=== PATIENT | female | born 1980 | race Caucasian/White ===

== ENCOUNTER 2018-08-09 11:15 | Emergency (ER) | payer SELFPAY ==
--- NOTE | 2018-08-09 12:05 | ER ---
Nurse's Notes [facility] Name: Santi Stinson Age: 37 yrs Sex: Female : 1980 Arrival Date: 08/09/2018 Time: 11:20 Bed 23 Private MD: Diagnosis: Pain in left leg;Pain in right leg Presentation: 08/09 11:20 Presenting complaint: Patient states: Pain to bilateral legs and hips since yesterday. aj1 Reports the pain is worse any time she changes position, and is making it difficult to walk. Denies any injury to legs or hips. Transition of care: patient was not received from another setting of care. Onset of symptoms was August 08, 2018. Risk Assessment: Do you want to hurt yourself or someone else? Patient reports no desire to harm self or others. Initial Sepsis Screen: Does the patient meet any 2 criteria? No. Patient's initial sepsis screen is negative. Does the patient have a suspected source of infection? No. Patient's initial sepsis screen is negative. Care prior to arrival: None. 11:20 Method Of Arrival: EMS: [facility] aj1 11:20 Acuity: SAMANTHA 4 aj1 Triage Assessment: 11:22 General: Appears in no apparent distress. comfortable, Behavior is calm, cooperative, aj1 appropriate for age. Pain: Complains of pain in left hip, right hip, right leg and left leg. Historical: - Allergies: 11:22 No Known Allergies; aj1 - Home Meds: 11:22 Depakote Oral [Active]; aj1 - PMHx: 11:22 ADD/ADHD; Anxiety; Bipolar disorder; Depression; Pre-eclampsia; Seizures; aj1 - Immunization history:: Adult Immunizations up to date. - Ebola Screening: : Patient denies travel to an Ebola-affected area in the 21 days before illness onset. - Family history:: not pertinent. - Hospitalizations: : No recent hospitalization is reported. Screenin:23 Abuse screen: Denies threats or abuse. Denies injuries from another. Nutritional aj1 screening: No deficits noted. Tuberculosis screening: No symptoms or risk factors identified. Assessment: 11:23 General: Appears in no apparent distress. comfortable, Behavior is calm, cooperative, aj1 appropriate for age. Pain: Complains of pain in left leg and right leg and right hip and left hip Pain does not radiate. Pain currently is 8 out of 10 on a pain scale. Quality of pain is described as crampy, Pain began 1 day ago. Is intermittent, Alleviated by nothing. Aggravated by repositioning. Neuro: Level of Consciousness is awake, alert, obeys commands. Cardiovascular: Patient's skin is warm and dry. Respiratory: Airway is patent Respiratory effort is even, unlabored, Respiratory pattern is regular, symmetrical. GI: No signs and/or symptoms were reported involving the gastrointestinal system. : No signs and/or symptoms were reported regarding the genitourinary system. EENT: No signs and/or symptoms were reported regarding the EENT system. Derm: No signs and/or symptoms reported regarding the dermatologic system. Skin is pink, warm \T\ dry. normal. Musculoskeletal: Circulation, motion, and sensation intact. Range of motion: intact in all extremities. 12:37 Reassessment: Patient appears in no apparent distress at this time. No changes from aj1 previously documented assessment. Patient and/or family updated on plan of care and expected duration. Pain level reassessed. Patient is alert, oriented x 3, equal unlabored respirations, skin warm/dry/pink. Vital Signs: 11:22 BP 113 / 96; Pulse 89; Resp 16; Temp 98.4; Pulse Ox 100% on R/A; Weight 95.25 kg (R); aj1 Height 5 ft. 4 in. (162.56 cm) (R); Pain 8/10; 12:37 BP 115 / 77; Pulse 75; Resp 16; Pulse Ox 98% on R/A; aj1 11:22 Body Mass Index 36.05 (95.25 kg, 162.56 cm) aj1 ED Course: 11:20 Patient arrived in ED. aj1 11:20 He Simmons MD is Attending Physician. rn 11:21 Triage completed. aj1 11:22 Arm band placed on. aj1 11:23 Patient has correct armband on for positive identification. Bed in low position. Call aj1 light in reach. Side rails up X 1. 11:23 No provider procedures requiring assistance completed. aj1 11:57 Alma Hernadez, RN is Primary Nurse. aj1 12:55 Patient did not have IV access during this emergency room visit. ss Administered Medications: 12:06 Drug: TORadol 30 mg Route: IM; Site: right deltoid; aj1 12:56 Follow up: Response: No adverse reaction; Pain is decreased Outcome: 12:05 Discharge ordered by . rn 12:55 Discharged to home ambulatory. 12:55 Condition: good 12:55 Discharge instructions given to patient, Instructed on discharge instructions, follow up and referral plans. medication usage, Demonstrated understanding of instructions, follow-up care, medications. 12:55 Patient left the ED. Signatures: Alma Hernadez RN RN aj1 He Simmons MD MD rn Smirch, Shelby, RN RN
--- NOTE | 2018-08-09 12:05 | EDPHYS ---
Physician Documentation [facility] Name: Santi Stinson Age: 37 yrs Sex: Female : 1980 Arrival Date: 08/09/2018 Time: 11:20 Bed 23 Private MD: ED Physician He Simmons HPI: 08/09 12:00 This 37 yrs old Female presents to ER via EMS with complaints of Leg Pain. rn 12:00 The patient presents with pain. The complaints affect the right leg and left leg. rn Onset: The symptoms/episode began/occurred this morning. Modifying factors: The symptoms are alleviated by nothing. the symptoms are aggravated by movement, weight bearing. Severity of symptoms: At their worst the symptoms were mild, in the emergency department the symptoms are unchanged. The patient has not experienced similar symptoms in the past. Reports walking a lot yesterday, no trauma, no fever/rash, reports woke up this morning with pain from feet to thighs, aching, hurts to walk. + chronic back problems, no new symptoms. . Historical: - Allergies: 11:22 No Known Allergies; aj1 - Home Meds: 11:22 Depakote Oral [Active]; aj1 - PMHx: 11:22 ADD/ADHD; Anxiety; Bipolar disorder; Depression; Pre-eclampsia; Seizures; aj1 - Immunization history:: Adult Immunizations up to date. - Ebola Screening: : Patient denies travel to an Ebola-affected area in the 21 days before illness onset. - Family history:: not pertinent. - Hospitalizations: : No recent hospitalization is reported. ROS: 12:02 Constitutional: Negative for fever, chills, and weight loss, Eyes: Negative for injury, rn pain, redness, and discharge, Neck: Negative for injury, pain, and swelling, Cardiovascular: Negative for chest pain, palpitations, and edema, Respiratory: Negative for shortness of breath, cough, wheezing, and pleuritic chest pain, Abdomen/GI: Negative for abdominal pain, nausea, vomiting, diarrhea, and constipation, MS/Extremity: Negative for injury and deformity, Skin: Negative for injury, rash, and discoloration, Neuro: Negative for headache, weakness, numbness, tingling, and seizure. Exam: 12:02 Constitutional: This is a well developed, well nourished patient who is awake, alert, rn and in no acute distress. Head/Face: Normocephalic, atraumatic. Abdomen/GI: soft, non-tender Skin: Warm, dry with normal turgor. Normal color with no rashes, no lesions, and no evidence of cellulitis. MS/ Extremity: Pulses equal, no cyanosis. Neurovascular intact. Full, normal range of motion. Equal circumference. Neuro: Awake and alert, GCS 15, oriented to person, place, time, and situation. Cranial nerves II-XII grossly intact. Motor strength 5/5 in all extremities. Sensory grossly intact. Cerebellar exam normal. Normal gait. 12:05 Psych: Exam negative for hallucinations, psychosis, paranoia, Also negative for rn suicidal or homicidal ideations.. Vital Signs: 11:22 BP 113 / 96; Pulse 89; Resp 16; Temp 98.4; Pulse Ox 100% on R/A; Weight 95.25 kg (R); aj1 Height 5 ft. 4 in. (162.56 cm) (R); Pain 8/10; 12:37 BP 115 / 77; Pulse 75; Resp 16; Pulse Ox 98% on R/A; aj1 11:22 Body Mass Index 36.05 (95.25 kg, 162.56 cm) aj1 MDM: 11:20 Patient medically screened. rn 12:02 Differential diagnosis: muscle aches, joint pains, radiculopathy, neuropathy. Data rn reviewed: vital signs, nurses notes, and as a result, I will discharge patient. Counseling: I had a detailed discussion with the patient and/or guardian regarding: the historical points, exam findings, and any diagnostic results supporting the discharge/admit diagnosis, the need for outpatient follow up, to return to the emergency department if symptoms worsen or persist or if there are any questions or concerns that arise at home. Special discussion: I discussed with the patient/guardian in detail that at this point there is no indication for admission to the hospital. It is understood, however, that if the symptoms persist or worsen the patient needs to return immediately for re-evaluation. ED course: No signs of trauma, compartments soft, no rash, + bilateral pain without weakness or sensory changes, states walked a lot yesterday, will dc home with pcp f/u and OTC meds.. Administered Medications: 12:06 Drug: TORadol 30 mg Route: IM; Site: right deltoid; aj1 12:56 Follow up: Response: No adverse reaction; Pain is decreased ss Disposition: 08/09/18 12:05 Discharged to Home. Impression: Pain in left leg, Pain in right leg. - Condition is Stable. - Discharge Instructions: Musculoskeletal Pain, Pain Without a Known Cause, Neuropathic Pain. - Medication Reconciliation Form, Thank You Letter, Antibiotic Education, Prescription Opioid Use form. - Follow up: Private Physician; When: As needed; Reason: Recheck today's complaints, Re-evaluation by your physician. - Problem is new. - Symptoms have improved. Signatures: Alma Hernadez RN RN aj1 He Simmons MD MD rn Smirch, Shelby, RN RN ss Corrections: (The following items were deleted from the chart) 12:55 12:05 08/09/2018 12:05 Discharged to Home. Impression: Pain in left leg; Pain in right ss leg. Condition is Stable. Forms are Medication Reconciliation Form, Thank You Letter, Antibiotic Education, Prescription Opioid Use. Follow up: Private Physician; When: As needed; Reason: Recheck today's complaints, Re-evaluation by your physician. Problem is new. Symptoms have improved. rn
[2018-08-09] MEDS ORDERED: KETOROLAC 30 MG/ML INJ ONE (12:09)
[2018-08-09 12:59] VITALS: TEMP 98.4
[2018-08-09 13:00] VITALS: BP 115/77; O2SAT 98
== END 2018-08-09 12:55 | disposition home or self-care (01) ==
LOC: ER 11:15
DX: M79.604 Pain in right leg (principal); F32.9 Major depressive disorder, single episode, unspecified; F41.9 Anxiety disorder, unspecified; F31.9 Bipolar disorder, unspecified
CPT/HCPCS: 96372; 99283

== ENCOUNTER 2018-08-23 15:14 | Emergency (ER) | payer SELFPAY ==
--- NOTE | 2018-08-23 15:47 | ER ---
Nurse's Notes [facility] Name: Santi Stinson Age: 37 yrs Sex: Female : 1980 Arrival Date: 08/23/2018 Time: 15:18 Bed 24 Private MD: Diagnosis: Dehydration Presentation: 08/23 15:20 Presenting complaint: EMS states: "SHE WALKED INSIDE THE [facility]. THEY FOUND THEM rv SITTING. SHE LOOKED DEHYDRATED. SHE IS COMPLAINING OF ABDOMINAL PAIN.". Transition of care: patient was not received from another setting of care. Onset of symptoms was August 23, 2018 at 15:00. Risk Assessment: Do you want to hurt yourself or someone else? Patient reports no desire to harm self or others. Initial Sepsis Screen: Does the patient meet any 2 criteria? No. Patient's initial sepsis screen is negative. Does the patient have a suspected source of infection? No. Patient's initial sepsis screen is negative. Care prior to arrival: None. 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 rv Historical: - Allergies: 15:23 No Known Allergies; rv - Home Meds: 15:23 None [Active]; rv - PMHx: 15:23 ADD/ADHD; Anxiety; Bipolar disorder; Depression; Pre-eclampsia; Seizures; rv - PSHx: 15:23 None; rv - Immunization history:: Adult Immunizations unknown. - Social history:: Smoking status: unknown. - Ebola Screening: : Patient negative for fever greater than or equal to 101.5 degrees Fahrenheit, and additional compatible Ebola Virus Disease symptoms Patient denies exposure to infectious person Patient denies travel to an Ebola-affected area in the 21 days before illness onset. Screenin:30 Abuse screen: Denies threats or abuse. Denies injuries from another. Nutritional rv screening: No deficits noted. Tuberculosis screening: No symptoms or risk factors identified. Fall Risk None identified. Assessment: 15:25 General: Appears in no apparent distress. uncomfortable, Behavior is restless, rv uncooperative. Pain: Complains of pain in abdomen. Neuro: Level of Consciousness is awake, alert, obeys commands, Oriented to person, place, time, situation. Cardiovascular: Capillary refill < 3 seconds. Respiratory: Airway is patent. GI: No signs and/or symptoms were reported involving the gastrointestinal system. : No signs and/or symptoms were reported regarding the genitourinary system. EENT: No signs and/or symptoms were reported regarding the EENT system. Derm: Skin is intact. Vital Signs: 15:24 BP 101 / 81; Pulse 102; Resp 17; Temp 99(O); Pulse Ox 100% on R/A; Weight 90.72 kg; rv ED Course: 15:18 Patient arrived in ED. rv 15:22 Sebastian Rios NP is PHCP. pm1 15:22 Caleb Marina MD is Attending Physician. pm1 15:22 Triage completed. rv 15:30 Arm band placed on right wrist. rv 15:30 Patient has correct armband on for positive identification. Bed in low position. Side rv rails up X2. Pulse ox on. NIBP on. 15:34 No provider procedures requiring assistance completed. Patient did not have IV access rv during this emergency room visit. Administered Medications: No medications were administered Outcome: 15:34 Eloped from patient exam room, after seeing physician Time discovered patient gone: rv August 23, 2018 at 15:35 15:34 Condition: unchanged 15:49 Patient left the ED. tw2 Signatures: Sebastian Rios NP HOMIC[employer] SQU[employer] COMMANDING OFFICER pm1 Marsha Bridges RN RN tw2 Nolan Gomez RN RN rv
--- NOTE | 2018-08-23 15:47 | EDPHYS ---
Physician Documentation [facility] Name: Santi Stinson Age: 37 yrs Sex: Female : 1980 Arrival Date: 08/23/2018 Time: 15:18 Bed 24 Private MD: ED Physician Caleb Marina HPI: 08/23 15:25 This 37 yrs old Female presents to ER via EMS with complaints of dehydration. pm1 15:25 Patient was brought here by EMS without any complaint from the patient. The patient was pm1 sitting in the [facility] and EMS was called by [facility] with possibility of dehydration. Onset: The symptoms/episode began/occurred just prior to arrival. Patient believes that she might be . Patient denies any abdominal pain to me. Patient denies homicidal or suicidal ideation. 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 rv Historical: - Allergies: 15:23 No Known Allergies; rv - Home Meds: 15:23 None [Active]; rv - PMHx: 15:23 ADD/ADHD; Anxiety; Bipolar disorder; Depression; Pre-eclampsia; Seizures; rv - PSHx: 15:23 None; rv - Immunization history:: Adult Immunizations unknown. - Social history:: Smoking status: unknown. - Ebola Screening: : Patient negative for fever greater than or equal to 101.5 degrees Fahrenheit, and additional compatible Ebola Virus Disease symptoms Patient denies exposure to infectious person Patient denies travel to an Ebola-affected area in the 21 days before illness onset. ROS: 15:25 Constitutional: Negative for fever, chills, and weight loss, Eyes: Negative for injury, pm1 pain, redness, and discharge, ENT: Negative for injury, pain, and discharge, Neck: Negative for injury, pain, and swelling, Cardiovascular: Negative for chest pain, palpitations, and edema, Respiratory: Negative for shortness of breath, cough, wheezing, and pleuritic chest pain, Abdomen/GI: Negative for abdominal pain, nausea, vomiting, diarrhea, and constipation, Back: Negative for injury and pain, : Negative for injury, bleeding, discharge, and swelling, MS/Extremity: Negative for injury and deformity, Skin: Negative for injury, rash, and discoloration, Neuro: Negative for headache, weakness, numbness, tingling, and seizure. Exam: 15:25 Constitutional: This is a well developed, well nourished patient who is awake, alert, pm1 and in no acute distress. Head/Face: Normocephalic, atraumatic. Eyes: Pupils equal round and reactive to light, extra-ocular motions intact. Lids and lashes normal. Conjunctiva and sclera are non-icteric and not injected. Cornea within normal limits. Periorbital areas with no swelling, redness, or edema. ENT: Nares patent. No nasal discharge, no septal abnormalities noted. Tympanic membranes are normal and external auditory canals are clear. Oropharynx with no redness, swelling, or masses, exudates, or evidence of obstruction, uvula midline. Mucous membranes moist. Neck: Trachea midline, no thyromegaly or masses palpated, and no cervical lymphadenopathy. Supple, full range of motion without nuchal rigidity, or vertebral point tenderness. No Meningismus. Chest/axilla: Normal chest wall appearance and motion. Nontender with no deformity. No lesions are appreciated. Cardiovascular: Regular rate and rhythm with a normal S1 and S2. No gallops, murmurs, or rubs. Normal PMI, no JVD. No pulse deficits. Respiratory: Lungs have equal breath sounds bilaterally, clear to auscultation and percussion. No rales, rhonchi or wheezes noted. No increased work of breathing, no retractions or nasal flaring. Abdomen/GI: Soft, non-tender, with normal bowel sounds. No distension or tympany. No guarding or rebound. No evidence of tenderness throughout. Back: No spinal tenderness. No costovertebral tenderness. Full range of motion. Skin: Warm, dry with normal turgor. Normal color with no rashes, no lesions, and no evidence of cellulitis. MS/ Extremity: Pulses equal, no cyanosis. Neurovascular intact. Full, normal range of motion. 15:25 Neuro: Orientation: is normal, Motor: moves all fours. 15:25 Psych: Behavior/mood is uncooperative, Affect is calm, Oriented to person, place, time, Patient has no thoughts/intents to harm self or others. Vital Signs: 15:24 BP 101 / 81; Pulse 102; Resp 17; Temp 99(O); Pulse Ox 100% on R/A; Weight 90.72 kg; rv MDM: 15:23 Patient medically screened. pm1 15:47 Data reviewed: vital signs. Data interpreted: Pulse oximetry: on room air is 100 %. pm1 Interpretation: normal. Refusal of service: The patient/guardian displays adequate decision making capability and despite a detailed discussion of alternatives, benefits, risks, and consequences refuses: all lab tests, wants to go home. 15:47 ED course: Patient with history of multiple visits for polysubstance abuse. Patient pm1 denies homicidal or suicidal ideation. Patient refused all lab work. 08/23 15:22 Order name: Urine Dipstick-Ancillary (obtain specimen) pm1 08/23 15:22 Order name: Urine Test (obtain specimen) pm1 08/23 15:23 Order name: EKG - Nurse/Tech pm1 08/23 15:23 Order name: IV Saline Lock pm1 08/23 15:23 Order name: Labs collected and sent pm1 Administered Medications: No medications were administered Disposition: 08/23/18 15:47 Patient left the facility after being seen by provider. Preliminary diagnosis is Dehydration. - Patient left due to (see nurse's notes). - Condition is Undetermined. - Problem is an ongoing problem. - Symptoms are unchanged. Signatures: Dispatcher [employer] EDMS Sebastian Rios NP PERSONAL LINES INSURANCE ADVISOR pm1 Marsha Bridges RN RN tw2 Nolan Gomez, RN RN rv Corrections: (The following items were deleted from the chart) 15:49 15:47 08/23/2018 15:47 Patient left the facility after being seen by provider. tw2 Preliminary diagnosis is Dehydration. Reason stated they are leaving due to (see nurse's notes). Condition is Undetermined. Problem is an ongoing problem. Symptoms are unchanged. pm1
[2018-08-23 15:54] VITALS: BP 101/81; TEMP 99; O2SAT 100
== END 2018-08-23 15:49 | disposition left against medical advice (07) ==
LOC: ER 15:14
DX: E86.0 Dehydration (principal)
CPT/HCPCS: 99283

== ENCOUNTER 2018-08-23 16:46 | Emergency (ER) | payer SELFPAY ==
[2018-08-23] MEDS ORDERED: NA CHLORIDE 0.9% 0 ML ONE (17:22)
[2018-08-23 17:36] LABS: Protime INR 1.17
[2018-08-23 18:09] LABS: Absolute Lymphocytes (CBC) 2.2 K/uL (0.7-4.9); Absolute Monocytes 1.1 K/uL (0.1-1.3); Absolute Neutrophil 8.5 K/uL (1.8-8.0); Basophils % 1.3 % (0-1.3); Eosinophils % 0.8 % (0-4.4); Hematocrit 29.4 % (36.0-45.0); Lymphocytes % 18.5 % (15.3-44.8); MCH 21.5 pg (27.0-35.0); MCV 69.6 fL (80-100); MPV 9.9 fL (7.6-11.3); Monocytes % 9.1 % (3.3-12.3); RBC Red Blood Cell Count 4.22 M/uL (3.86-4.86)
[2018-08-23 18:11] LABS: Platelet Estimate ADEQ; Urine White Blood Cell Casts OK
[2018-08-23 18:12] LABS: Blood Morphology Comment NOTED (NOT SEEN); Hypochromasia 1+
[2018-08-23 18:17] LABS: ALT/SGPT 22 U/L (12-78); AST/SGOT 18 U/L (15-37); Albumin 4.5 g/dL (3.4-5.0); Alkaline Phosphatase 97 U/L (45-117); BUN Blood Urea Nitrogen 10 mg/dL (7-18); Bicarbonate 20 mmol/L (21-32); Bilirubin Direct 0.2 mg/dL (0-0.2); Bilirubin Total 0.7 mg/dL (0.2-1.0); Glucose Level 102 mg/dL (74-106); Lipase 68 U/L (73-393); Potassium 3.4 mmol/L (3.5-5.1); Protein, Total 9.1 g/dL (6.4-8.2); Sodium Level 137 mmol/L (136-145)
--- NOTE | 2018-08-23 20:04 | ER ---
Nurse's Notes [facility] Name: Santi Stinson Age: 37 yrs Sex: Female : 1980 Arrival Date: 08/23/2018 Time: 17:04 Bed 17 Private MD: Diagnosis: Hallucinations, unspecified;Drug abuse Presentation: 08/23 17:04 Presenting complaint: EMS states: FOUND ON THE SIDE OF THE ROAD. UNCOOPERATIVE. PT HAD ss JUST ELOPED FROM THE ER FOR POSSIBLE PSYCH PROBLEM/ DEHYDRATION. PT IS UNSURE WHY SHE IS IN THE ER OTHER THAN SHE HAD A BABY ON THE SIDE OF THE ROAD AND BROUGHT ANOTHER ONE WITH HER. NO BABIES WERE FOUND ON SCENE. Transition of care: patient was not received from another setting of care. Onset of symptoms is unknown. Risk Assessment: Do you want to hurt yourself or someone else? Patient reports no desire to harm self or others. Initial Sepsis Screen: Does the patient meet any 2 criteria? No. Patient's initial sepsis screen is negative. Does the patient have a suspected source of infection? No. Patient's initial sepsis screen is negative. Care prior to arrival: None. 17:04 Method Of Arrival: EMS: [facility] ss 17:04 Acuity: SAMANTHA 2 ss LICENSED MENTAL HEALTH PROFESSIONAL: 17:11 unable to obtain rb1 Historical: - PMHx: 17:06 ADD/ADHD; Anxiety; Bipolar disorder; Depression; Pre-eclampsia; Seizures; ss - Immunization history:: Adult Immunizations unknown. - Social history:: Smoking status: Patient/guardian denies using tobacco. - Ebola Screening: : Patient negative for fever greater than or equal to 101.5 degrees Fahrenheit, and additional compatible Ebola Virus Disease symptoms. Screenin:11 Abuse screen: Denies threats or abuse. Nutritional screening: No deficits noted. rb1 Tuberculosis screening: No symptoms or risk factors identified. Fall Risk None identified. Assessment: 17:05 General: Appears distressed, uncomfortable. Neuro: Level of Consciousness is awake, ss uncooperative. Respiratory: Airway is patent Respiratory effort is even, unlabored, Respiratory pattern is regular, symmetrical. Derm: Skin is intact, Skin is diaphoretic, Skin is normal. Musculoskeletal: Circulation, motion, and sensation intact. Range of motion: intact in all extremities. 17:11 General: Appears distressed, unkempt, Behavior is uncooperative. Pain: Denies pain. rb1 Neuro: Level of Consciousness is awake, confused, Oriented to person. Cardiovascular: Capillary refill < 3 seconds is brisk in bilateral fingers. Respiratory: Airway is patent Respiratory effort is even, unlabored, Respiratory pattern is regular, symmetrical. GI: No signs and/or symptoms were reported involving the gastrointestinal system. : No signs and/or symptoms were reported regarding the genitourinary system. Derm: Skin is intact, Skin is diaphoretic, Skin is normal. Musculoskeletal: Range of motion: intact in all extremities. 17:45 Reassessment: Patient appears in no apparent distress at this time. Patient and/or rb1 family updated on plan of care and expected duration. Pain level reassessed. Patient is alert, oriented x 3, equal unlabored respirations, skin warm/dry/pink. Pt. is more calm now. 18:30 Reassessment: Patient appears in no apparent distress at this time. Patient and/or rb1 family updated on plan of care and expected duration. Pain level reassessed. Pt. continues to be uncooperative. Patient denies pain at this time. 19:08 Reassessment: Patient appears in no apparent distress at this time. No changes from jd3 previously documented assessment. Patient and/or family updated on plan of care and expected duration. Pain level reassessed. Patient is alert, oriented x 3, equal unlabored respirations, skin warm/dry/pink. pt denied wanted to hurt herself or others. 20:00 Reassessment: Patient appears in no apparent distress at this time. No changes from jd3 previously documented assessment. Patient and/or family updated on plan of care and expected duration. Pain level reassessed. Patient is alert, oriented x 3, equal unlabored respirations, skin warm/dry/pink. 20:30 Reassessment: Patient appears in no apparent distress at this time. No changes from jd3 previously documented assessment. Patient and/or family updated on plan of care and expected duration. Pain level reassessed. Patient is alert, oriented x 3, equal unlabored respirations, skin warm/dry/pink. pt reported understanding of discharge instructions from doctor, left before signing discharge paperwork. Psych: 17:11 Subjective: Patient's mood is crying. Objective: Patient is uncooperative, Speech is rb1 normal. Interventions: Removed personal items and placed in bag. Patient placed in hospital gown. Searched person for dangerous items. Pt denies substance abuse pt. denies wanting to hurt herself or others. 20:30 Suicide Risk Assessment: Sad Person Scale: Sex of patient: Female: Score 0 points. Age jd3 of patient: Score 0 point if patient falls outside of specified age parameters. Depression: Score 0 point if signs of depression are not present. Previous Attempt: Score 0 point if patient has not previously attempted suicide. Substance Abuse: Score 1 point if patient abuses alcohol or drugs. Rational Thinking: Score 1 point if patient is lacking rational thinking. Social Support: Score 0 if social support is present/available. Organized Plan: Score 0 if patient did not have an organized plan in place. Relationship: Score 0 point if patient has a spouse or domestic partner. Chronic Sickness: Score 0 point if patient does not have a chronic illness, debilitating, or severe disorder. TOTAL POINTS: If total points are 0-2, proposed clinical action is to send home with follow-up. Safety Checks: Personal items have been removed. Door is open. No visitors are present at this time. 20:30 Commitment: pt discharged. jd3 Vital Signs: 17:19 BP 95 / 63; Pulse 119; Resp 25; Pulse Ox 100% on R/A; mh5 ED Course: 17:00 Safety checks: Items removed: yes. Door open/sign placed on door: yes. Family/friend mh5 present: no. Sitter present: Yes. 17:04 Patient arrived in ED. ss 17:05 Sebastian Rios NP is PHCP. pm1 17:05 Caleb Marina MD is Attending Physician. pm1 17:05 Inserted saline lock: 20 gauge in right antecubital area, using aseptic technique. ss Blood collected. 17:09 EKG done, by meter technician. reviewed by Sebastian Rios NP. sm3 17:11 Arm band placed on right wrist. rb1 17:12 Cynthia Gutierrez, RN is Primary Nurse. rb1 17:15 Safety checks: Items removed: yes. Door open/sign placed on door: yes. Family/friend mh5 present: no. Sitter present: Yes. 17:17 Basic Metabolic Panel Sent. mh5 17:17 Acetaminophen Level Sent. mh5 17:18 Triage completed. ss 17:18 Acetaminophen Sent. mh5 17:18 Basic Metabolic Panel Sent. mh5 17:18 CBC with Diff Sent. mh5 17:18 ETOH Level Sent. mh5 17:18 Hepatic Function Sent. mh5 17:18 PT-INR Sent. mh5 17:18 Ptt, Activated Sent. mh5 17:18 Salicylate Sent. mh5 17:24 Patient has correct armband on for positive identification. Placed in gown. Bed in low mh5 position. Side rails up X2. Warm blanket given. 17:30 Safety checks: Items removed: yes. Door open/sign placed on door: yes. Family/friend mh5 present: no. Sitter present: Yes. 17:45 Safety checks: Items removed: yes. Door open/sign placed on door: yes. Family/friend mh5 present: no. Sitter present: Yes. 18:00 Safety checks: Items removed: yes. Door open/sign placed on door: yes. Family/friend mh5 present: no. Sitter present: Yes. 18:02 Diet: Patient given a regular meal tray. 5 18:15 Safety checks: Items removed: yes. Door open/sign placed on door: yes. Family/friend mh5 present: no. Sitter present: Yes. 18:30 Safety checks: Items removed: yes. Door open/sign placed on door: yes. Family/friend mh5 present: no. Sitter present: Yes. 18:45 Safety checks: Items removed: yes. Door open/sign placed on door: yes. Family/friend mh5 present: no. Sitter present: Yes. 19:00 Safety Checks: Personal items have been removed. The door is open or patient has been jd3 placed in a hallway bed/chair. There are no family/friend visitors at this time Sitter present at this time. 19:00 Safety checks: Items removed: yes. Door open/sign placed on door: yes. Family/friend mh5 present: no. Sitter present: Yes. 19:00 Report given to LANG Munoz. rb1 19:15 Safety Checks: Personal items have been removed. The door is open or patient has been jd3 placed in a hallway bed/chair. There are no family/friend visitors at this time Sitter present at this time. 19:15 Safety checks: Items removed: yes. Door open/sign placed on door: yes. Family/friend mt present: no. Sitter present: Yes. Other: Mai, examination supervisor sitting one on one. 19:30 Safety Checks: Personal items have been removed. The door is open or patient has been jd3 placed in a hallway bed/chair. There are no family/friend visitors at this time Sitter present at this time. 19:45 Safety Checks: Personal items have been removed. The door is open or patient has been jd3 placed in a hallway bed/chair. There are no family/friend visitors at this time Sitter present at this time. 20:00 Safety Checks: Personal items have been removed. The door is open or patient has been jd3 placed in a hallway bed/chair. There are no family/friend visitors at this time Sitter present at this time. 20:00 No provider procedures requiring assistance completed. IV discontinued, intact, jd3 bleeding controlled, No redness/swelling at site. Pressure dressing applied. 20:15 Safety Checks: Personal items have been removed. The door is open or patient has been jd3 placed in a hallway bed/chair. There are no family/friend visitors at this time Sitter present at this time. 20:30 Safety Checks: Personal items have been removed. The door is open or patient has been jd3 placed in a hallway bed/chair. There are no family/friend visitors at this time Sitter present at this time. Administered Medications: 17:43 Not Given (Patient Refused; Provider notified): NS 0.9% 1000 ml IV at 1000 ml once rb1 Outcome: 20:04 Discharge ordered by . pm1 20:30 Discharged to home ambulatory. jd3 20:30 Condition: stable 20:30 Discharge instructions given to patient, Instructed on follow up and referral plans. Demonstrated understanding of instructions. 20:36 Patient left the ED. jd3 Signatures: Gladis Devi RN RN ss Cynthia Gutierrez RN RN rb1 Sebastian Rios, TONYA INSTRUMENT INSPECTOR pm1 Patria Tobias [facility] Mai Potter mt, Jonathon, RN RN jd3 Aziza Douglas 3 Corrections: (The following items were deleted from the chart) 20:44 20:41 Safety Checks: Personal items have been removed. Door is open. No visitors are jd3 present at this time. jd3 20:44 20:41 Suicide Risk Assessment: Sad Person Scale: Sex of patient: Female: Score 0 jd3 points. Age of patient: Score 0 point if patient falls outside of specified age parameters. Depression: Score 0 point if signs of depression are not present. Previous Attempt: Score 0 point if patient has not previously attempted suicide. Substance Abuse: Score 1 point if patient abuses alcohol or drugs. Rational Thinking: Score 1 point if patient is lacking rational thinking. Social Support: Score 0 if social support is present/available. Organized Plan: Score 0 if patient did not have an organized plan in place. Relationship: Score 0 point if patient has a spouse or domestic partner. Chronic Sickness: Score 0 point if patient does not have a chronic illness, debilitating, or severe disorder. TOTAL POINTS: If total points are 0-2, proposed clinical action is to send home with follow-up. jd3 20:45 19:08 Reassessment: Patient appears in no apparent distress at this time. No changes jd3 from previously documented assessment. Patient and/or family updated on plan of care and expected duration. Pain level reassessed. Patient is alert, oriented x 3, equal unlabored respirations, skin warm/dry/pink. jd3
--- NOTE | 2018-08-23 20:04 | EDPHYS ---
Physician Documentation [facility] Name: Santi Stinson Age: 37 yrs Sex: Female : 1980 Arrival Date: 08/23/2018 Time: 17:04 Bed 17 Private MD: ED Physician Caleb Marina HPI: 08/23 18:00 This 37 yrs old Female presents to ER via EMS with complaints of Psych pm1 Problem. 18:00 The patient presents to the emergency department with hallucinations. Onset: The pm1 symptoms/episode began/occurred today. Past psychiatric history: Prior diagnosis: bipolar disorder, polysubstance abuse. Associated signs and symptoms: Pertinent negatives: abdominal pain, chest pain, fever, homicidal ideation, shortness of breath, suicide ideation. The patient has been recently seen at the [facility] Emergency Department, today, by me. Patient seen by me today but refused all labs. Patient was not homicidal or suicidal so she was free to leave the ER as she wished. Patient returned now due to patient complaining of hallucinations. Patient admits to drug abuse and has a history of multiple visits for polysubstance abuse. SOCIAL MEDIA MARKETING SPECIALIST: 17:11 unable to obtain rb1 Historical: - PMHx: 17:06 ADD/ADHD; Anxiety; Bipolar disorder; Depression; Pre-eclampsia; Seizures; ss - Immunization history:: Adult Immunizations unknown. - Social history:: Smoking status: Patient/guardian denies using tobacco. - Ebola Screening: : Patient negative for fever greater than or equal to 101.5 degrees Fahrenheit, and additional compatible Ebola Virus Disease symptoms. ROS: 18:00 Constitutional: Negative for fever, chills, and weight loss, Eyes: Negative for injury, pm1 pain, redness, and discharge, ENT: Negative for injury, pain, and discharge, Neck: Negative for injury, pain, and swelling, Cardiovascular: Negative for chest pain, palpitations, and edema, Respiratory: Negative for shortness of breath, cough, wheezing, and pleuritic chest pain, Abdomen/GI: Negative for abdominal pain, nausea, vomiting, diarrhea, and constipation, Back: Negative for injury and pain, : Negative for injury, bleeding, discharge, and swelling, MS/Extremity: Negative for injury and deformity, Skin: Negative for injury, rash, and discoloration, Neuro: Negative for headache, weakness, numbness, tingling, and seizure. 18:00 Psych: Positive for visual hallucinations, Negative for homicidal ideation, suicide gesture, suicidal ideation. Exam: 18:00 Constitutional: This is a well developed, well nourished patient who is awake, alert, pm1 and in no acute distress. Head/Face: Normocephalic, atraumatic. Eyes: Pupils equal round and reactive to light, extra-ocular motions intact. Lids and lashes normal. Conjunctiva and sclera are non-icteric and not injected. Cornea within normal limits. Periorbital areas with no swelling, redness, or edema. ENT: Nares patent. No nasal discharge, no septal abnormalities noted. Tympanic membranes are normal and external auditory canals are clear. Oropharynx with no redness, swelling, or masses, exudates, or evidence of obstruction, uvula midline. Mucous membranes moist. Neck: Trachea midline, no thyromegaly or masses palpated, and no cervical lymphadenopathy. Supple, full range of motion without nuchal rigidity, or vertebral point tenderness. No Meningismus. Chest/axilla: Normal chest wall appearance and motion. Nontender with no deformity. No lesions are appreciated. Cardiovascular: Regular rate and rhythm with a normal S1 and S2. No gallops, murmurs, or rubs. No pulse deficits. Respiratory: Lungs have equal breath sounds bilaterally, clear to auscultation and percussion. No rales, rhonchi or wheezes noted. No increased work of breathing, no retractions or nasal flaring. Abdomen/GI: Soft, non-tender, with normal bowel sounds. No distension or tympany. No guarding or rebound. No evidence of tenderness throughout. Back: No spinal tenderness. No costovertebral tenderness. Full range of motion. Skin: Warm, dry with normal turgor. Normal color with no rashes, no lesions, and no evidence of cellulitis. MS/ Extremity: Pulses equal, no cyanosis. Neurovascular intact. Full, normal range of motion. 18:00 Neuro: Orientation: to person, place, time, situation, Motor: moves all fours, Gait: is steady, at a normal pace, without difficulty. 18:00 Psych: Behavior/mood is cooperative, Affect is animated, Patient has no thoughts/intents to harm self or others. Vital Signs: 17:19 BP 95 / 63; Pulse 119; Resp 25; Pulse Ox 100% on R/A; mh5 MDM: 17:06 Patient medically screened. pm1 20:00 ED course: patient refused to give urine sample but admitted to drug use. pm1 20:02 Data reviewed: vital signs. Data interpreted: Pulse oximetry: on room air is 100 %. pm1 Interpretation: normal. Counseling: I had a detailed discussion with the patient and/or guardian regarding: the historical points, exam findings, and any diagnostic results supporting the discharge/admit diagnosis, lab results, the need for outpatient follow up, to return to the emergency department if symptoms worsen or persist or if there are any questions or concerns that arise at home. 08/23 17:05 Order name: Acetaminophen pm1 08/23 17:05 Order name: Basic Metabolic Panel pm1 08/23 17:05 Order name: CBC with Diff; Complete Time: 19:57 pm1 08/23 17:05 Order name: ETOH Level; Complete Time: 19:57 pm1 08/23 17:05 Order name: Hepatic Function; Complete Time: 19:57 pm1 08/23 17:05 Order name: PT-INR; Complete Time: 17:44 pm1 08/23 17:05 Order name: Ptt, Activated; Complete Time: 17:44 pm1 08/23 17:05 Order name: Salicylate; Complete Time: 19:57 pm1 08/23 17:06 Order name: Lipase; Complete Time: 19:57 pm1 08/23 17:06 Order name: Acetaminophen Level; Complete Time: 19:57 EDMS 08/23 17:06 Order name: Basic Metabolic Panel; Complete Time: 19:57 EDMS 08/23 17:30 Order name: Test, Serum pm1 08/23 17:31 Order name: Test Serum, Qualitat; Complete Time: 19:57 EDMS 08/23 17:05 Order name: EKG; Complete Time: 17:06 pm1 08/23 17:05 Order name: EKG - Nurse/Tech; Complete Time: 17:43 pm1 08/23 17:05 Order name: IV Saline Lock; Complete Time: 17:17 pm1 08/23 17:05 Order name: Labs collected and sent; Complete Time: 17:18 pm1 08/23 17:47 Order name: Diet Finger Food; Complete Time: 17:47 mh5 08/23 18:04 Order name: CBC Smear Scan; Complete Time: 19:57 EDMS Administered Medications: 17:43 Not Given (Patient Refused; Provider notified): NS 0.9% 1000 ml IV at 1000 ml once rb1 Disposition: 08/23/18 20:04 Discharged to Home. Impression: Drug abuse, Hallucinations, unspecified. - Condition is Stable. - Discharge Instructions: What You Need To Know About Illegal Drug Use and Dependence, Youth. - Medication Reconciliation Form, Thank You Letter, Antibiotic Education, Prescription Opioid Use form. - Follow up: Emergency Department; When: As needed; Reason: Worsening of condition. Follow up: Private Physician; When: 2 - 3 days; Reason: Recheck today's complaints, Continuance of care, Re-evaluation by your physician. - Problem is new. - Symptoms have improved. Signatures: Dispatcher [employer] EDMS Gladis Devi RN RN ss Cynthia Gutierrez RN RN rb1 Sebastian Rios, CIRCULAR DISTRIBUTOR CIRCULAR DISTRIBUTOR pm1 Alex Fuentes RN RN jd3 Corrections: (The following items were deleted from the chart) 20:36 20:04 08/23/2018 20:04 Discharged to Home. Impression: Drug abuseHallucinations, jd3 unspecified. Condition is Stable. Forms are Medication Reconciliation Form, Thank You Letter, Antibiotic Education, Prescription Opioid Use. Follow up: Emergency Department; When: As needed; Reason: Worsening of condition. Follow up: Private Physician; When: 2 - 3 days; Reason: Recheck today's complaints, Continuance of care, Re-evaluation by your physician. Problem is new. Symptoms have improved. pm1
[2018-08-23 21:08] VITALS: BP 95/63; O2SAT 100
--- NOTE | 2018-08-24 06:51 | EKG ---
Test Date: 2018-08-23 Test Time: 16:56:55 [employer] Supervisor: AMANDA MEASUREMENT RESULTS: Intervals: Rate: 118 MD: 154 QRSD: 82 QT: 322 QTc: 451 [place]: P: 68 MD: 154 QRS: 18 T: 52 INTERPRETIVE STATEMENTS: Sinus tachycardia Low voltage QRS Borderline ECG Compared to ECG 04/29/2017 17:49:21 Low QRS voltage now present Sinus rhythm no longer present Electronically Signed On 08-24-18 06:50:27 CDT by Adrián Vieira
== END 2018-08-23 20:36 | disposition home or self-care (01) ==
LOC: ER 16:46
DX: F19.10 Other psychoactive substance abuse, uncomplicated (principal); F31.9 Bipolar disorder, unspecified
CPT/HCPCS: 36415; 80048; 80076; 80320; 80329; 83690; 84703; 85025; 85610; 85730; 93005; 99284; J7030

== ENCOUNTER 2018-08-24 02:19 | Emergency (ER) | payer SELFPAY ==
--- NOTE | 2018-08-24 02:30 | EDPHYS ---
Physician Documentation [facility] Name: Santi Stinson Age: 37 yrs Sex: Female : 1980 Arrival Date: 08/24/2018 Time: 02:20 Bed 13 Private MD: ED Physician Irving Mckeon HPI: 08/24 02:39 This 37 yrs old Female presents to ER via Ambulatory with complaints of pm1 Insect bite On Neck. 02:39 Onset: The symptoms/episode began/occurred just prior to arrival. Associated signs and pm1 symptoms: Pertinent negatives: abdominal pain, chest pain, shortness of breath, sore throat, vomiting, wheezing. Modifying factors: The patient symptoms are alleviated by nothing, the patient symptoms are aggravated by nothing. The patient has not experienced similar symptoms in the past. The patient has been recently seen at the [facility] Emergency Department, today, by me. Patient reports she does not have a home and currently has no place to go. Patient was outside and got bitten by an insect on her neck. 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 - Social history:: Smoking status: unknown. - Ebola Screening: : No symptoms or risks identified at this time. ROS: 02:39 Constitutional: Negative for fever, chills, and weight loss, Eyes: Negative for injury, pm1 pain, redness, and discharge, ENT: Negative for injury, pain, and discharge, Neck: Negative for injury, pain, and swelling, Cardiovascular: Negative for chest pain, palpitations, and edema, Respiratory: Negative for shortness of breath, cough, wheezing, and pleuritic chest pain, Abdomen/GI: Negative for abdominal pain, nausea, vomiting, diarrhea, and constipation, Back: Negative for injury and pain, MS/Extremity: Negative for injury and deformity, Skin: Negative for injury, rash, and discoloration, Neuro: Negative for headache, weakness, numbness, tingling, and seizure. Exam: 02:39 Constitutional: This is a well developed, well nourished patient who is awake, alert, pm1 and in no acute distress. Head/Face: Normocephalic, atraumatic. Eyes: Pupils equal round and reactive to light, extra-ocular motions intact. Lids and lashes normal. Conjunctiva and sclera are non-icteric and not injected. Cornea within normal limits. Periorbital areas with no swelling, redness, or edema. ENT: Nares patent. No nasal discharge, no septal abnormalities noted. Tympanic membranes are normal and external auditory canals are clear. Oropharynx with no redness, swelling, or masses, exudates, or evidence of obstruction, uvula midline. Mucous membranes moist. Neck: Trachea midline, no thyromegaly or masses palpated, and no cervical lymphadenopathy. Supple, full range of motion without nuchal rigidity, or vertebral point tenderness. No Meningismus. Chest/axilla: Normal chest wall appearance and motion. Nontender with no deformity. No lesions are appreciated. Cardiovascular: Regular rate and rhythm with a normal S1 and S2. No gallops, murmurs, or rubs. Normal PMI, no JVD. No pulse deficits. Respiratory: Lungs have equal breath sounds bilaterally, clear to auscultation and percussion. No rales, rhonchi or wheezes noted. No increased work of breathing, no retractions or nasal flaring. Abdomen/GI: Soft, non-tender, with normal bowel sounds. No distension or tympany. No guarding or rebound. No evidence of tenderness throughout. Back: No spinal tenderness. No costovertebral tenderness. Full range of motion. Skin: Warm, dry with normal turgor. Normal color with no rashes, no lesions, and no evidence of cellulitis. MS/ Extremity: Pulses equal, no cyanosis. Neurovascular intact. Full, normal range of motion. 02:39 Neuro: Orientation: is normal, Motor: is normal, moves all fours, Gait: is steady, at a normal pace, without difficulty. Vital Signs: 02:32 BP 115 / 81; Pulse 103; Resp 20 S; Temp 98.6(O); Pulse Ox 98% on R/A; Weight 90.72 kg bb (R); Height 5 ft. 4 in. (162.56 cm) (R); Pain 10/10; 02:32 Body Mass Index 34.33 (90.72 kg, 162.56 cm) bb MDM: 02:28 Patient medically screened. pm1 02:46 Data reviewed: vital signs. pm1 Administered Medications: 02:34 Drug: Benadryl 25 mg Route: PO; coral 02:39 Follow up: Response: Medication administered at discharge. coral Disposition: 04:28 Co-signature as Attending Physician, Irving Mckeon MD I agree with the assessment and wa plan of care. Disposition: 08/24/18 02:29 Discharged to Home. Impression: Insect bite of unspecified part of neck. - Condition is Stable. - Discharge Instructions: Insect Bite. - Prescriptions for Benadryl 25 mg Oral Capsule - take 1 capsule by ORAL route every 6 hours As needed; 30 tablet. - Medication Reconciliation Form, Thank You Letter form. - Follow up: Emergency Department; When: As needed; Reason: Worsening of condition. Follow up: Private Physician; When: 2 - 3 days; Reason: Recheck today's complaints, Continuance of care, Re-evaluation by your physician. - Problem is new. - Symptoms have improved. Signatures: Cherie Pimentel RN RN Sebastian Andersen, RIG MECHANIC RIG MECHANIC pm1 Sarita Pruett RN Irving Manjarrez ea, MD MD wa Davies, Jonathon RN RN jd3 Corrections: (The following items were deleted from the chart) 02:39 02:29 08/24/2018 02:29 Discharged to Home. Impression: Insect bite of unspecified part jd3 of neck. Condition is Stable. Forms are Medication Reconciliation Form, Thank You Letter, Antibiotic Education, Prescription Opioid Use. Follow up: Emergency Department; When: As needed; Reason: Worsening of condition. Follow up: Private Physician; When: 2 - 3 days; Reason: Recheck today's complaints, Continuance of care, Re-evaluation by your physician. Problem is new. Symptoms have improved. pm1
[2018-08-24] MEDS ORDERED: DIPHENHYDRAMINE 25 MG TAB/CAP ONE (02:38)
--- NOTE | 2018-08-24 02:40 | ER ---
Nurse's Notes [facility] Name: Santi Stinson Age: 37 yrs Sex: Female : 1980 Arrival Date: 08/24/2018 Time: 02:20 Bed 13 Private MD: Diagnosis: Insect bite of unspecified part of neck Presentation: 08/24 02:30 Presenting complaint: Patient states: she thinks she may have gotten bitten on the neck bb by something approx 20 minutes ago and feels like her face is swelling. Transition of care: patient was not received from another setting of care. Onset of symptoms was August 24, 2018. Risk Assessment: Do you want to hurt yourself or someone else? Patient reports no desire to harm self or others. Initial Sepsis Screen: Does the patient meet any 2 criteria? No. Patient's initial sepsis screen is negative. Does the patient have a suspected source of infection? No. Patient's initial sepsis screen is negative. Care prior to arrival: None. 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 - Social history:: Smoking status: unknown. - Ebola Screening: : No symptoms or risks identified at this time. Screenin:39 Abuse screen: Denies threats or abuse. Nutritional screening: No deficits noted. ea Tuberculosis screening: No symptoms or risk factors identified. Fall Risk None identified. Assessment: 02:37 General: Appears in no apparent distress. Behavior is restless. Pain: Complains of pain ea in neck. Neuro: Level of Consciousness is awake, alert, obeys commands, Oriented to person, place, time. Cardiovascular: Patient's skin is warm and dry. Respiratory: Airway is patent Respiratory effort is even, unlabored, Respiratory pattern is regular, symmetrical. GI: No signs and/or symptoms were reported involving the gastrointestinal system. : No signs and/or symptoms were reported regarding the genitourinary system. Derm: Skin is pink, warm \T\ dry. Musculoskeletal: No signs and/or symptoms reported regarding the musculoskeletal system. 02:40 Reassessment: Patient and/or family updated on plan of care and expected duration. Pain ea level reassessed. Patient is alert, oriented x 3, equal unlabored respirations, skin warm/dry/pink. Discharge instructions given to patient, verbalized the understanding of instructions. Vital Signs: 02:32 BP 115 / 81; Pulse 103; Resp 20 S; Temp 98.6(O); Pulse Ox 98% on R/A; Weight 90.72 kg bb (R); Height 5 ft. 4 in. (162.56 cm) (R); Pain 10/10; 02:32 Body Mass Index 34.33 (90.72 kg, 162.56 cm) bb ED Course: 02:20 Patient arrived in ED. ds1 02:24 Sebastian Rios NP is PHCP. pm1 02:24 Irving Mckeon MD is Attending Physician. pm1 02:31 Triage completed. bb 02:32 Arm band placed on Patient placed in an exam room, on a stretcher, on pulse oximetry. bb 02:34 Sarita Pruett RN is Primary Nurse. ea 02:39 No provider procedures requiring assistance completed. Patient did not have IV access ea during this emergency room visit. Administered Medications: 02:34 Drug: Benadryl 25 mg Route: PO; ea 02:39 Follow up: Response: Medication administered at discharge. ea Outcome: 02:29 Discharge ordered by . pm1 02:39 Discharged to home ambulatory. ea 02:39 Condition: good 02:39 Discharge instructions given to patient, Instructed on discharge instructions, follow up and referral plans. medication usage, Demonstrated understanding of instructions, follow-up care, medications, Prescriptions given X 1. 02:39 Patient left the ED. jd3 Signatures: Siena Suggs ds1 Cherie Pimentel RN RN bb Sebastian Rios NP GROUNDS/MAINTENANCE SPECIALIST pm1 Sarita Pruett RN RN ea Davies, Jonathon, RN RN jd3
[2018-08-24 02:49] VITALS: BP 115/81; TEMP 98.6; O2SAT 98
== END 2018-08-24 02:39 | disposition home or self-care (01) ==
LOC: ER 02:19
DX: S10.96XA Insect bite of unspecified part of neck, initial encounter (principal)
CPT/HCPCS: 99283

== ENCOUNTER 2018-09-05 00:35 | Emergency (ER) | payer SELFPAY ==
--- NOTE | 2018-09-05 01:26 | EDPHYS ---
Physician Documentation [facility] Name: Santi Stinson Age: 37 yrs Sex: Female : 1980 Arrival Date: 09/05/2018 Time: 00:47 Bed 8 Private MD: ED Physician Stephen Maza HPI: 09/05 01:23 This 37 yrs old Female presents to ER via EMS with complaints of Altered gs Mental Status. 01:23 The patient presents with trouble concentrating. Onset: The symptoms/episode gs began/occurred 1 week(s) ago. Possible causes: drug use, amphetamines. Associated signs and symptoms: Pertinent negatives: chest pain. Current symptoms: In the emergency department the patient's symptoms are unchanged from the initial presentation. The patient has experienced similar episodes in the past, multiple times. Historical: - Allergies: 01:03 No Known Allergies; aa1 - Home Meds: 01:03 None [Active]; aa1 - PMHx: 01:03 ADD/ADHD; Anxiety; Bipolar disorder; Depression; Pre-eclampsia; Seizures; Gastric aa1 Reflux; - PSHx: 01:03 ; aa1 - Immunization history:: Adult Immunizations unknown. - Social history:: Smoking status: Patient uses tobacco products, denies chronic smoking, but will smoke occasionally, Patient uses street drugs, Methamphetamine (Meth). - Ebola Screening: : No symptoms or risks identified at this time. ROS: 01:23 All other systems are negative. gs Exam: 01:23 Constitutional: The patient appears alert, awake. gs 01:23 Cardiovascular: Rate: tachycardic, Rhythm: regular. 01:23 Respiratory: Exam negative for acute changes. 01:23 Neuro: Orientation: to person, place, time, Cranial nerves: CN II- XII are normal as tested, Motor: moves all fours, Gait: is steady. 01:23 Psych: Patient has no thoughts/intents to harm self or others. Delusions/hallucinations are present and described as says sees people occasionally. Vital Signs: 00:50 BP 109 / 85; Pulse 101; Resp 22; Temp 98.2; Pulse Ox 100% on R/A; Weight 90.72 kg; aa1 Height 5 ft. 4 in. (162.56 cm); Pain 9/10; 00:50 Body Mass Index 34.33 (90.72 kg, 162.56 cm) aa1 MDM: 01:22 Patient medically screened. 01:23 Data reviewed: vital signs, nurses notes. ED course: doesn't want to be treated and gs left ed before instructions given. Administered Medications: No medications were administered Disposition: 09/05/18 01:26 Discharged to Home. Impression: Adverse effect of amphetamines, Malingerer [conscious simulation]. - Condition is Stable. - Discharge Instructions: Stimulant Use Disorder-Methamphetamines. - Medication Reconciliation Form, Thank You Letter, Antibiotic Education, Prescription Opioid Use form. - Follow up: Private Physician; When: 2 - 3 days; Reason: Re-evaluation by your physician. Signatures: Yocasta Sauceda RN RN aa1 Stephen Maza MD MD Corrections: (The following items were deleted from the chart) 01:34 01:26 09/05/2018 01:26 Discharged to Home. Impression: Adverse effect of amphetamines; aa1 Malingerer [conscious simulation]. Condition is Stable. Forms are Medication Reconciliation Form, Thank You Letter, Antibiotic Education, Prescription Opioid Use. Follow up: Private Physician; When: 2 - 3 days; Reason: Re-evaluation by your physician. gs
--- NOTE | 2018-09-05 01:26 | ER ---
Nurse's Notes [facility] Name: Santi Stinson Age: 37 yrs Sex: Female : 1980 Arrival Date: 09/05/2018 Time: 00:47 Bed 8 Private MD: Diagnosis: Adverse effect of amphetamines;Malingerer [conscious simulation] Presentation: 09/05 00:50 Presenting complaint: Patient states: she is homeless and has been sleeping outside for aa1 the past 4 days and is concerned she is dehydrated. Pt covered in dirt and grass. EMS [place]. Pt admits to using meth yesterday but denies any drug use today. Transition of care: patient was not received from another setting of care. Onset of symptoms was August 31, 2018. Risk Assessment: Do you want to hurt yourself or someone else? Patient reports no desire to harm self or others. Initial Sepsis Screen: Does the patient meet any 2 criteria? RR > 20 per min. HR > 90 bpm. Does the patient have a suspected source of infection? No. Patient's initial sepsis screen is negative. Care prior to arrival: None. 00:50 Method Of Arrival: EMS: [facility] aa1 00:50 Acuity: SAMANTHA 3 aa1 Historical: - Allergies: 01:03 No Known Allergies; aa1 - Home Meds: 01:03 None [Active]; aa1 - PMHx: 01:03 ADD/ADHD; Anxiety; Bipolar disorder; Depression; Pre-eclampsia; Seizures; Gastric aa1 Reflux; - PSHx: 01:03 ; aa1 - Immunization history:: Adult Immunizations unknown. - Social history:: Smoking status: Patient uses tobacco products, denies chronic smoking, but will smoke occasionally, Patient uses street drugs, Methamphetamine (Meth). - Ebola Screening: : No symptoms or risks identified at this time. Screenin:55 Abuse screen: Denies threats or abuse. Denies injuries from another. Nutritional aa1 screening: No deficits noted. Tuberculosis screening: No symptoms or risk factors identified. Fall Risk None identified. Assessment: 00:55 General: Appears in no apparent distress. comfortable, unkempt, Behavior is aa1 cooperative, anxious, restless. Pain: Complains of pain in back and left foot. Neuro: Level of Consciousness is awake, alert, obeys commands, Oriented to person, place, time, situation, Moves all extremities. Full function Gait is steady, Speech is normal. Respiratory: Airway is patent Respiratory effort is even, unlabored, Respiratory pattern is regular, symmetrical. GI: No signs and/or symptoms were reported involving the gastrointestinal system. : No signs and/or symptoms were reported regarding the genitourinary system. EENT: No signs and/or symptoms were reported regarding the EENT system. Derm: Skin is intact, is healthy with good turgor, Skin is pink, warm \T\ dry. Musculoskeletal: Circulation, motion, and sensation intact. Capillary refill < 3 seconds. 01:10 Reassessment: Patient appears in no apparent distress at this time. Patient is alert, aa1 oriented x 3, equal unlabored respirations, skin warm/dry/pink. Pt exits exam room fully dressed stating that she does not wish to be treated and is going to leave. Pt amb to lobby with steady gait. Vital Signs: 00:50 BP 109 / 85; Pulse 101; Resp 22; Temp 98.2; Pulse Ox 100% on R/A; Weight 90.72 kg; aa1 Height 5 ft. 4 in. (162.56 cm); Pain 9/10; 00:50 Body Mass Index 34.33 (90.72 kg, 162.56 cm) aa1 ED Course: 00:47 Patient arrived in ED. am2 00:47 Yocasta Sauceda, LANG is Primary Nurse. aa1 00:49 Stephen Maza MD is Attending Physician. gs 00:50 Arm band placed on right wrist. Patient placed in an exam room, on a stretcher. aa1 00:55 Patient has correct armband on for positive identification. Placed in gown. Bed in low aa1 position. Call light in reach. Pulse ox on. NIBP on. 00:58 Triage completed. aa1 01:10 No provider procedures requiring assistance completed. Patient did not have IV access aa1 during this emergency room visit. Administered Medications: No medications were administered Outcome: : Discharge ordered by . gs 01:26 Discharged to home ambulatory. aa1 01:26 Condition: good 01:26 Discharge instructions given to pt left w/o d/c papers; did not want to wait for paperwork or sign d/c papers 01:34 Patient left the ED. aa1 Signatures: Yocasta Sauceda RN RN aa1 Makayla Oropeza am2 Stephen Maza MD MD gs
[2018-09-06 14:17] VITALS: BP 109/85; TEMP 98.2; O2SAT 100
== END 2018-09-05 01:34 | disposition home or self-care (01) ==
LOC: ER 00:35
DX: T43.625A Adverse effect of amphetamines, initial encounter (principal); Z76.5 Malingerer [conscious simulation]; Z72.0 Tobacco use
CPT/HCPCS: 99283

== ENCOUNTER 2018-11-26 19:42 | Emergency (ER) | payer SELFPAY ==
[2018-11-26 20:55] LABS: Absolute Lymphocytes (CBC) 1.1 K/uL (0.7-4.9); Absolute Monocytes 0.4 K/uL (0.1-1.3); Absolute Neutrophil 3.9 K/uL (1.8-8.0); Basophils % 1.6 % (0-1.3); Eosinophils % 0.4 % (0-4.4); Hematocrit 26.4 % (36.0-45.0); Lymphocytes % 19.7 % (15.3-44.8); MPV 9.9 fL (7.6-11.3); Monocytes % 7.4 % (3.3-12.3); RBC Red Blood Cell Count 3.86 M/uL (3.86-4.86)
[2018-11-26 21:18] LABS: BUN Blood Urea Nitrogen 9 mg/dL (7-18); Bicarbonate 23 mmol/L (21-32); Creatine Phosphokinase 71 U/L (26-192); Glucose Level 108 mg/dL (74-106); Magnesium 2.2 mg/dL (1.8-2.4); Potassium 3.8 mmol/L (3.5-5.1); Sodium Level 138 mmol/L (136-145); Troponin I < 0.02 ng/mL (0.0-0.045)
[2018-11-26 21:46] LABS: Blood Morphology Comment NOTED (NOT SEEN); Hypochromasia 1+; Platelet Estimate ADEQ; Urine White Blood Cell Casts OK
[2018-11-26 22:19] LABS: Urine Blood 2+ (NEG); Urine Glucose NEGATIVE (NEG); Urine Protein 1+ (NEG)
[2018-11-26 22:24] LABS: Barbiturates NEGATIVE (NEGATIVE); Benzodiazepines NEGATIVE (NEGATIVE); Cocaine NEGATIVE (NEGATIVE); METHAMPHETAM POSITIVE (NEGATIVE); Methadone NEGATIVE (NEGATIVE); Opiates NEGATIVE (NEGATIVE); Phencyclidine NEGATIVE (NEGATIVE); THC Cannibis POSITIVE (NEGATIVE)
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
[2018-11-26 22:30] LABS: Urine Bacteria <20 /HPF (<20); Urine Culture Reflex Order NOT NEEDED; Urine Mucus 3+ /HPF (NONE SEEN)
[2018-11-26 23:13] VITALS: O2SAT 100
[2018-11-26 23:15] VITALS: BP 116/62; TEMP 98.6
--- NOTE | 2018-11-27 13:32 | EKG ---
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
== END 2018-11-26 22:52 | disposition home or self-care (01) ==
LOC: ER 19:42
DX: Z04.89 Encounter for examination and observation for other specified reasons (principal)
CPT/HCPCS: 36415; 80048; 80307; 81003; 81015; 81025; 82550; 83735; 84484; 85025; 93005; 99283

== ENCOUNTER 2021-02-10 23:02 | Inpatient (IN) | payer SELFPAY ==
--- OUTSIDE RECORDS SUMMARY | 2021-02-10 23:05 | XMS REPORT | Continuity of Care Document ---
:1980 Author Organization [facility] t Address [address] [place] [address] Care Team Providers Name Role Phone Unavailable Unavailable Unavailable Problems This patient has no known problems. Allergies, Adverse Reactions, Alerts This patient has no known allergies or adverse reactions. Medications This patient has no known medications. Procedures This patient has no known procedures. Results Test Description Test Time Test Comments Results Result Comments Source ABO/RH 2018-02-15 08:21:00 Test Item Value Reference Range Interpretation Comme nts BLOOD TYPE (test code = TYPE) O Rh Positive Comment for Females Rhogam may be i ndicated for patient depending baby' s Rh status. BMP, BASIC METABOLIC [id number] 04:05:00 Test Item Value Reference Range Interpretation Comments SODIUM (test code = 140 MMOL/L 137-145 NA) K+ (test code = 4.6 MMOL/L 3.5-5.1 PLEASE NOTE NEW KSERUM) REFERENCE RANGE (S) IN EFFECT EFFECTIVE 010 - NEW ANALYZER (V ITROS 5600) CHLORIDE (test code 106 MMOL/L 98-107 = CL) CO2 (test code = 21 MMOL/L 22-30 L CO2) BUN (test code = 9 MG/DL 7-17 BUN) CREA (test code = 0.6 MG/DL 0.7-1.2 L CREA) GLUCOSE (test code 97 MG/DL 70-99 Fasting glucose = GLUCOSE) normal <100 MG/ DL- [employer] recommendation* * CALCIUM (test code 9.6 MG/DL 8.4-10.2 = CABLOOD) GFR (test code = 120 A GFR of >9 0 GFR) mL/min/1.73m2 mL/min/1.73m2 is considered norm al. B-HCG, [id number] 04:05:00 Test Item Value Reference Range Interpretation Comments HCG (test code = <2.39 MIU/ML A value of less than or HCG) equal to </= 4. 83 mIU/ml is considered N EGATIVE. A value between 4 .84 mIU/ml and 24.99 mIU/m l is considered INDE TERMINATE and should be r epeated in 48 hours if nec essary. A value of 25.0 m IU/ml or greater is cons idered POSITIVE. Updat ed: 03/29/2010 [id number] 03:44:00 Test Item Value Reference Range Interpretation Comments GLUCOSE (test code = URGLU) NEGATIVE MG/DL NEG-100 BILIRUBN (test code = URBILI) NEGATIVE NEGATIVE KETONE (test code = URKET) NEGATIVE MG/DL NEGATIVE BLOOD (test code = URBLD) NEGATIVE UR PH (test code = URPH) 6.0 5.0-7.5 PROTEIN (test code = URPRO) NEGATIVE MG/DL NEGATIVE NITRITES (test code = URNIT) NEGATIVE NEGATIVE UROBILINGEN (test code = 0.2 EU/DL 0.2-1.0 URURO) LEUKOCYT (test code = URLEU) NEGATIVE NEGATIVE UA COLOR (test code = UA YELLOW YELLOW COLOR) CLARITY (test code = CLARITY) CLEAR CLEAR SP GRAV (test code = URSPGRAV) 1.019 1.000-1.025 UAMICRO (test code = UAMICRO) NO [id number] 03:27:00 Test Item Value Reference Range Interpretation Comments WBC (test code = 8.7 K/UL 3.5-10.9 WBC) RBC (test code = 3.59 M/UL 4.0-5.0 L RBC) HGB (test code = 10.1 G/DL 11.5-15.5 L HGB) HCT (test code = 32.8 % 34-46 L HCT) MCV (test code = 91.4 FL 80-98 MCV) MCH (test code = 28.1 PG 28-32 MCH) MCHC (test code = 30.8 G/DL 32.5-36.5 L MCHC) RDW (test code = 13.2 % 11.5-14.5 RDW) PLT (test code = 270 K/UL 150-450 PLT) MPV (test code = 11.6 FL 7.4-10.4 H MPV) MANDIFF (test code = NO MANDIFF) SCAN (test code = NO SCAN) NEUT% (test code = 59.5 % 40-75 NEUT%) LYMPH% (test code = 28.3 % 24-44 LYMPH%) MONO% (test code = 8.0 % 0-13 MONO%) EOS% (test code = 3.3 % 0-4 EOS%) BASO % (test code = 0.6 % 0-2 BASO%) IG% (test code = 0.3 % 0-1 IG% = Metam yelocytes, IG%) Myelocytes, and Promyelocytes. (Immature neutr ophils not including " bands".) > 3% IG indic ates risk of sepsis NRBC% (test code = 0 /100 WBC NRBC%) ABS NEUT (test code 5.2 K/UL 1.2-7.2 = NEUT)
[2021-02-10 23:59] LABS: Absolute Lymphocytes (CBC) 2.5 K/uL (0.7-4.9); Basophils % 1.4 % (0-1.3); Hematocrit 41.6 % (36.0-45.0); MPV 10.3 fL (7.6-11.3); RBC Red Blood Cell Count 4.54 M/uL (3.86-4.86)
[2021-02-11] MEDS ORDERED: DIPHENHYDRAMINE 50 MG/ML VIAL ONE (00:05)
[2021-02-11] MEDS ORDERED: NA CHLORIDE 0.9% 1,000 ML ONE (00:06)
[2021-02-11] MEDS ORDERED: HALOPERIDOL LACT 5 MG/ML INJ ONE (00:06)
[2021-02-11 00:09] LABS: Protime INR 1.09
[2021-02-11 00:24] LABS: ALT/SGPT 27 U/L (12-78); AST/SGOT 19 U/L (15-37); Albumin 3.8 g/dL (3.4-5.0); Alkaline Phosphatase 98 U/L (45-117); BUN Blood Urea Nitrogen 11 mg/dL (7-18); Bicarbonate 21 mmol/L (21-32); Bilirubin Direct 0.2 mg/dL (0-0.2); Bilirubin Total 0.7 mg/dL (0.2-1.0); Glucose Level 106 mg/dL (74-106); Potassium 2.8 mmol/L (3.5-5.1); Protein, Total 7.8 g/dL (6.4-8.2); Sodium Level 139 mmol/L (136-145)
[2021-02-11 00:47] LABS: Magnesium 1.8 mg/dL (1.8-2.4)
[2021-02-11] MEDS ORDERED: KCL 20 MEQ/100 mL IVPB 20 MEQ/100 ML BAG IV ONE (00:52)
--- NOTE | 2021-02-11 01:04 | ER ---
Nurse's Notes [facility] Name: Santi Stinson Age: 40 yrs Sex: Female : 1980 Arrival Date: 02/10/2021 Time: 23:04 Bed 4 Private MD: Diagnosis: Hypokalemia Presentation: 02/10 23:07 Chief complaint: Chief complaint: EMS states: PD called us saying that patient was at mg2 sonic tonight and claiming she was seeing things and she was out of her medications ( psych meds). the last time she took it was 2 days ago. she is anxious and in manic episode now,.patient denies SI or HI. 23:11 Coronavirus screen: Client denies travel out of the [place] in the last 14 days. At this mg2 time, the client does not indicate any symptoms associated with coronavirus-19. Ebola Screen: No symptoms or risks identified at this time. Initial Sepsis Screen: Does the patient meet any 2 criteria? No. Patient's initial sepsis screen is negative. Does the patient have a suspected source of infection? No. Patient's initial sepsis screen is negative. Risk Assessment: Do you want to hurt yourself or someone else? Patient reports no desire to harm self or others. Onset of symptoms was February 10, 2021. 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 - Social history:: Smoking status: Patient/guardian denies using tobacco, Patient/guardian denies using alcohol, street drugs, IV drugs, Patient/guardian denies using The patient lives with family. - Family history:: not pertinent. Screenin:46 Abuse screen: Denies threats or abuse. Denies injuries from another. Nutritional mg2 screening: No deficits noted. Tuberculosis screening: No symptoms or risk factors identified. Fall Risk IV access (20 points). Assessment: 23:42 General: Appears in no apparent distress. Behavior is anxious. Pain: Denies pain. mg2 Neuro: Level of Consciousness is awake, alert, Oriented to person, place. Cardiovascular: Capillary refill < 3 seconds Patient's skin is warm and dry. Respiratory: Airway is patent Respiratory effort is even, unlabored, Respiratory pattern is regular, symmetrical. GI: No signs and/or symptoms were reported involving the gastrointestinal system. : No signs and/or symptoms were reported regarding the genitourinary system. EENT: No signs and/or symptoms were reported regarding the EENT system. Derm: Skin is intact, is healthy with good turgor, Skin is pink, warm \\T\\ dry. normal. Musculoskeletal: Circulation, motion, and sensation intact. Capillary refill < 3 seconds. 02/11 00:17 Reassessment: Patient refused the meds ordered. provider informed and said he will dc mg2 the patient. 01:16 Reassessment: seen by Hospitalist and advised admission. mg2 02:30 Reassessment: Patient appears in no apparent distress at this time. Patient and/or wh family updated on plan of care and expected duration. Pain level reassessed. 12:19 Reassessment: Sharon, License Microwave Radio Technician at bedside, pt rambling, with visual tw2 and auditory hallucinations, pt states she has "someone to call but they told me i am staying here", pt refusing to allow us to hold phone at this time or give us any phone numbers at this time, provider notified. Vital Signs: 02/10 23:11 BP 155 / 85; Pulse 110; Resp 18; Temp 98.7; Pulse Ox 100% on R/A; Weight 113.4 kg; mg2 Height 5 ft. 1 in. (154.94 cm); Pain 0/10; 02/11 03:00 BP 106 / 87; Pulse 94; Resp 18; Pulse Ox 100% ; wh 02/10 23:11 Body Mass Index 47.24 (113.40 kg, 154.94 cm) mg2 ED Course: 02/10 23:04 Patient arrived in ED. sg 23:04 Caleb Marina MD is Attending Physician. ma2 23:07 Pako Mcclain RN is Primary Nurse. mg2 23:15 Triage completed. mg2 23:16 Arm band placed on. mg2 23:28 No provider procedures requiring assistance completed. Inserted saline lock: 20 gauge mg2 in right forearm, using aseptic technique. Blood collected. 23:46 Patient has correct armband on for positive identification. mg2 02/11 00:26 Notified ED physician of a critical lab result(s). K 2.8. 01:03 Ishan Angelo is Hospitalizing Provider. ma2 01:53 COVID swab sent to lab. Patient admitted, IV remains in place. mg2 04:30 Inserted saline lock: 20 gauge in right forearm, using aseptic technique. by LANG Correa. mg2 07:34 Primary Nurse role handed off by Pako cMclain RN bd 08:06 Malika Fountain, LANG is Primary Nurse. sv 17:48 notified [facility] of need for a screener to evaluate pt. bd 18:13 pt face timing with Brennan with antony mcgovern at this time. bd 19:02 Primary Nurse role handed off by Malika Fountain RN sv Administered Medications: 02/10 23:55 Drug: NS 0.9% 1000 ml Route: IV; Rate: 1 bolus; Site: right forearm; mg2 02/11 03:11 Follow up: Response: No adverse reaction; IV Status: Completed infusion 00:15 Not Given (Patient Refused): Haloperidol Lactate 5 mg IM once ma2 00:15 Not Given (Patient ): Benadryl 50 mg IVP once ma2 00:37 Drug: Potassium Chloride 20 mEq Route: IV; Rate: calculated rate; Site: right forearm; mg2 03:11 Follow up: Response: No adverse reaction; IV Status: Completed infusion 05:51 Drug: Rocephin (cefTRIAXone) 1 grams Route: IV; Rate: calculated rate; Site: right mg2 forearm; 06:06 Follow up: Response: No adverse reaction; IV Status: Completed infusion Outcome: 01:03 Decision to Hospitalize by Provider. ma2 03:11 Admitted to ER Hold. Please see [facility] for further documentation. 03:11 Condition: stable 03:11 Instructed on the need for admit. 19:38 Admitted to Med/surg accompanied by tech, via wheelchair, room 232, with chart, Report wh called to Tonya Haskins RN 19:38 Condition: stable 19:38 Instructed on the need for admit. 19:38 Patient left the ED. Signatures: Barbara Nava Stephanie, RN RN sv Will Cruz RN LANG sg Marsha Bridges RN RN 2 Eloy Skinner RN RN Caleb Marina MD MD md2 Pako Mcclain RN RN mg2 Corrections: (The following items were deleted from the chart) 02/10 23:15 23:07 Chief complaint: mg2 mg2
--- NOTE | 2021-02-11 01:04 | EDPHYS ---
Physician Documentation [facility] Name: Santi Stinson Age: 40 yrs Sex: Female : 1980 Arrival Date: 02/10/2021 Time: 23:04 Bed 4 Private MD: ED Physician Caleb Marina HPI: 02/10 23:51 This 40 yrs old Female presents to ER via EMS with complaints of ma2 halucinations. 23:51 The patient presents to the emergency department with paranoia, psychosis. Onset: The ma2 symptoms/episode began/occurred gradually, 1 week(s) ago. Associated signs and symptoms: Pertinent positives; hallucinations, Pertinent negatives: chest pain, depression, headache, homicidal ideation, suicide ideation, vomiting. Severity of symptoms: At their worst the symptoms were very mild in the emergency department the symptoms are unchanged. The patient has experienced similar episodes in the past. not taking her psych meds. 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 - Social history:: Smoking status: Patient/guardian denies using tobacco, Patient/guardian denies using alcohol, street drugs, IV drugs, Patient/guardian denies using The patient lives with family. - Family history:: not pertinent. ROS: 23:51 Constitutional: Negative for fever, chills, and weight loss. ma2 23:51 All other systems are negative. Exam: 23:51 Constitutional: This is a well developed, well nourished patient who is awake, alert, ma2 and in no acute distress. Neck: Trachea midline, no thyromegaly or masses palpated, and no cervical lymphadenopathy. Supple, full range of motion without nuchal rigidity, or vertebral point tenderness. No Meningismus. Chest/axilla: Normal chest wall appearance and motion. Nontender with no deformity. No lesions are appreciated. Cardiovascular: Regular rate and rhythm with a normal S1 and S2. No gallops, murmurs, or rubs. Normal PMI, no JVD. No pulse deficits. Respiratory: Lungs have equal breath sounds bilaterally, clear to auscultation and percussion. No rales, rhonchi or wheezes noted. No increased work of breathing, no retractions or nasal flaring. Abdomen/GI: Soft, non-tender, with normal bowel sounds. No distension or tympany. No guarding or rebound. No evidence of tenderness throughout. MS/ Extremity: Pulses equal, no cyanosis. Neurovascular intact. Full, normal range of motion. Neuro: Awake and alert, GCS 15, oriented to person, place, time, and situation. Cranial nerves II-XII grossly intact. Motor strength 5/5 in all extremities. Sensory grossly intact. Cerebellar exam normal. Normal gait. 23:51 Psych: Behavior/mood is Affect is animated, Oriented to person, place, time, Patient has no thoughts/intents to harm self or others. Delusions/hallucinations Vital Signs: 23:11 BP 155 / 85; Pulse 110; Resp 18; Temp 98.7; Pulse Ox 100% on R/A; Weight 113.4 kg; mg2 Height 5 ft. 1 in. (154.94 cm); Pain 0/10; 02/11 03:00 BP 106 / 87; Pulse 94; Resp 18; Pulse Ox 100% ; wh 02/10 23:11 Body Mass Index 47.24 (113.40 kg, 154.94 cm) mg2 MDM: 02/10 23:04 Patient medically screened. ma2 02/11 00:38 Differential diagnosis: hypokalemia. Data reviewed: vital signs, nurses notes. ma2 Counseling: I had a detailed discussion with the patient and/or guardian regarding: the historical points, exam findings, and any diagnostic results supporting the discharge/admit diagnosis, the presence of at least one elevated blood pressure reading (>120/80) during this emergency department visit, the need for outpatient follow up. Response to treatment: the patient's symptoms have markedly improved after treatment. ED course: patient has hypokalemia, she also has schizophrenia hallucination however that is chronic and she has medication, aox4, no SI or HI, no emergency psych condition . 02/10 23:27 Order name: Acetaminophen; Complete Time: 01:00 mg2 02/10 23:27 Order name: Basic Metabolic Panel; Complete Time: 01:00 [facility] 02/10 23:27 Order name: CBC with Diff; Complete Time: 00:14 [facility] 02/10 23:27 Order name: ETOH Level; Complete Time: 00:14 [facility] 02/10 23:27 Order name: Hepatic Function; Complete Time: 01:00 [facility] 02/10 23:27 Order name: PT-INR; Complete Time: 00:14 [facility] 02/10 23:27 Order name: Ptt, Activated; Complete Time: 00:14 [facility] 02/10 23:27 Order name: Salicylate; Complete Time: 05:35 [facility] 02/10 23:27 Order name: Urine Drug Screen [facility] 02/11 00:27 Order name: Magnesium ma2 02/11 00:33 Order name: Magnesium; Complete Time: 01:00 [facility] 02/11 03:19 Order name: SARS-COV-2 RT PCR; Complete Time: 05:35 [facility] 02/11 03:41 Order name: Potassium [facility] 02/11 04:53 Order name: Potassium; Complete Time: 05:35 [facility] 02/11 04:53 Order name: T4 Free; Complete Time: 05:35 [facility] 02/11 04:53 Order name: Thyroid Stimulating Hormone; Complete Time: 05:35 [facility] 02/11 05:31 Order name: Urine Microscopic Only [facility] 02/11 05:31 Order name: Urine Culture [facility] 02/11 05:37 Order name: Urine Dipstick--Ancillary (enter results) [facility] 02/11 05:37 Order name: Urine --Ancillary (enter results) [facility] 02/11 05:52 Order name: Urine --Ancillary [facility] 02/11 05:52 Order name: Urine Dipstick-Ancillary [facility] 02/11 06:07 Order name: Urinalysis [facility] 02/11 06:17 Order name: Urine Microscopic Only [facility] 02/10 23:27 Order name: EKG; Complete Time: 23:28 [facility] 02/10 23:27 Order name: EKG - Nurse/Tech; Complete Time: 23:36 [facility] 02/10 23:27 Order name: IV Saline Lock; Complete Time: 23:36 [facility] 02/10 23:27 Order name: Labs collected and sent; Complete Time: 23:36 [facility] 02/10 23:27 Order name: Urine Dipstick-Ancillary (obtain specimen); Complete Time: 04:43 [facility] 02/11 04:50 Order name: Urine Dipstick-Ancillary (obtain specimen); Complete Time: 05:31 Administered Medications: 02/10 23:55 Drug: NS 0.9% 1000 ml Route: IV; Rate: 1 bolus; Site: right forearm; mg2 02/11 03:11 Follow up: Response: No adverse reaction; IV Status: Completed infusion 00:15 Not Given (Patient Refused): Haloperidol Lactate 5 mg IM once [facility] 00:15 Not Given (Patient ): Benadryl 50 mg IVP once mt2 00:37 Drug: Potassium Chloride 20 mEq Route: IV; Rate: calculated rate; Site: right forearm; mg2 03:11 Follow up: Response: No adverse reaction; IV Status: Completed infusion 05:51 Drug: Rocephin (cefTRIAXone) 1 grams Route: IV; Rate: calculated rate; Site: right mg2 forearm; 06:06 Follow up: Response: No adverse reaction; IV Status: Completed infusion Disposition: 02/11/21 01:03 Hospitalization ordered by Ishan Angelo for Observation. Preliminary diagnosis is Hypokalemia. - Bed requested for Telemetry/MedSurg (observation). - Status is Observation. - Condition is Stable. - Problem is new. - Symptoms are unchanged. Signatures: Dispatcher [employer] EDMS Barbara Nava Cindy, LANG CROFT Eloy Skinner RN RN Caleb Marina MD MD [facility] Pako Mcclain RN RN mg2 Corrections: (The following items were deleted from the chart) 00:33 00:28 Magnesium ordered. [facility] EDMS 01:46 01:18 CORONAVIRUS+MR.LAB.BRZ ordered. [facility] EDMS 02:49 01:03 Hospitalization Ordered by Ishan Angelo for Observation. Preliminary diagnosis cg is Hypokalemia. Bed requested for Telemetry/MedSurg (observation). Status is Observation. Condition is Stable. Problem is new. Symptoms are unchanged. ma2 18:41 02:49 02/11/2021 01:03 Hospitalization Ordered by Ishan Angelo for Observation. Preliminary diagnosis is Hypokalemia. Bed requested for [facility] ER HOLD. Status is Observation. Condition is Stable. Problem is new. Symptoms are unchanged. 19:38 18:41 02/11/2021 01:03 Hospitalization Ordered by Ishan Angelo for Observation. wh Preliminary diagnosis is Hypokalemia. Bed requested for Telemetry/MedSurg (observation). Status is Observation. Condition is Stable. Problem is new. Symptoms are unchanged. bd
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
[2021-02-11] MEDS ORDERED: ONDANSETRON 4 MG/2 ML VIAL IV PRN (03:38)
[2021-02-11] MEDS ORDERED: LORazepam 2 MG/ML VIAL IV ONE (03:38)
[2021-02-11 03:46] VITALS: BMI 47.2
[2021-02-11] MEDS ORDERED: POTASSIUM CL SA 10 MEQ TAB PO SCH (04:00)
[2021-02-11] MEDS ORDERED: NA CHLORIDE 0.9% 50 ML ONE (04:28)
[2021-02-11] MEDS ORDERED: LORazepam 2 MG/ML VIAL ONE (04:28)
[2021-02-11 04:41] LABS: Potassium 3.3 mmol/L (3.5-5.1)
[2021-02-11 04:53] LABS: Thyroid Stimulating Hormone 4.12 uIU/mL (0.360-3.740)
[2021-02-11] MEDS: POTASSIUM CL SA 10 MEQ TAB PO SCH ×3 (05:15→16:10)
[2021-02-11 05:52] LABS: Urine Blood 2+ (NEG); Urine Glucose NEGATIVE (NEG); Urine Protein 2+ (NEG); Urine Specific Gravity >1.030 (1.005-1.030)
[2021-02-11 05:53] LABS: Urine Appearance TURBID; Urine Blood 2+ (NEG); Urine Color ORANGE; Urine Glucose NEGATIVE (NEG); Urine Microscopic Reflex ORDER UMIC; Urine Protein 1+ (NEG); Urine Specific Gravity >=1.030 (1.005-1.030)
[2021-02-11 06:03] LABS: Barbiturates NEGATIVE (NEGATIVE); Benzodiazepines POSITIVE (NEGATIVE); Cocaine POSITIVE (NEGATIVE); METHAMPHETAM POSITIVE (NEGATIVE); Methadone NEGATIVE (NEGATIVE); Opiates NEGATIVE (NEGATIVE); Phencyclidine NEGATIVE (NEGATIVE); THC Cannibis NEGATIVE (NEGATIVE)
[2021-02-11] MEDS ORDERED: CEFTRIAXONE/SWI 1gm 1 GM/10 ML SYR ONE ×2 (06:07→06:09)
[2021-02-11 06:08] LABS: Urine Bilirubin NEGATIVE (NEG)
[2021-02-11] MEDS ORDERED: POTASSIUM CL SA 10 MEQ TAB PO ONE ×3 (06:09→16:24)
[2021-02-11 06:17] LABS: Urine Bacteria 20-50 /HPF (<20); Urine Mucus 2+ /HPF (NONE SEEN); Urine Urothelial Cells <5 /HPF (NONE SEEN)
--- NOTE | 2021-02-11 06:20 | EKG ---
Test Date: 2021-02-10 Test Time: 22:33:27 Physician Asst: MEASUREMENT RESULTS: Intervals: Rate: 98 NV: 152 QRSD: 90 QT: 362 QTc: 462 [place]: P: 36 NV: 152 QRS: 46 T: 32 INTERPRETIVE STATEMENTS: Sinus rhythm with fusion complexes Low voltage QRS Borderline ECG Compared to ECG 11/26/2018 20:19:55 Fusion complex(es) now present Electronically Signed On 02-11-21 06:19:11 CDT by Adrián Vieira
[2021-02-11] MEDS ORDERED: ENOXAPARIN 40 MG/0.4 ML SQ ONE (07:40)
[2021-02-11] MEDS: ENOXAPARIN 40 MG/0.4 ML SQ SCH (07:53)
[2021-02-11] MEDS ORDERED: INFLUENZA VACCINE (for 3y+) 0.5 ML DOSE IMVAC ONE (10:00)
--- NOTE | 2021-02-11 18:38 | P.PN ---
Date of Service: 02/11/21 Potassium corrected to 3.3. Patient exhibiting auditory hallucinations. She stated she is homeless. Hypokalemia Acute psychosis Schizophrenia UTI. Not able to discharge at the moment in the care of a family member. Case discussed with Dr. Richard who recommend Risperdal. Will consult mental health to evaluate for need for inpatient psychiatry. IV Rocephin. Follow urine culture.
[2021-02-11] MEDS: DIVALPROEX DR 500MG TAB PO SCH (20:00)
[2021-02-12 07:32] LABS: Absolute Lymphocytes (CBC) 2.3 K/uL (0.7-4.9); Basophils % 1.1 % (0-1.3); Hematocrit 37.9 % (36.0-45.0); Lymphocytes % 33.9 % (15.3-44.8); MPV 10.4 fL (7.6-11.3); RBC Red Blood Cell Count 4.08 M/uL (3.86-4.86)
[2021-02-12 07:41] LABS: BUN Blood Urea Nitrogen 8 mg/dL (7-18); Bicarbonate 27 mmol/L (21-32); Glucose Level 92 mg/dL (74-106); Magnesium 2.3 mg/dL (1.8-2.4); Potassium 3.6 mmol/L (3.5-5.1); Sodium Level 140 mmol/L (136-145)
[2021-02-12] MEDS: VIT C PO SCH (09:00)
[2021-02-12] MEDS: B12 PO SCH (09:00)
[2021-02-12] MEDS: B6 PO SCH (09:00)
[2021-02-12] MEDS: D3 PO SCH (09:00)
[2021-02-12] MEDS: ENOXAPARIN 40 MG/0.4 ML SQ SCH (09:00)
[2021-02-12] MEDS: IRON PO SCH (09:00)
[2021-02-12] MEDS ORDERED: CEFTRIAXONE 1 GM/NS 50 ML 1 GM/50 ML BAG IV SCH (09:00)
[2021-02-12] MEDS: FOLATE PO SCH (09:00)
[2021-02-12] MEDS ORDERED: POTASSIUM CL SA 10 MEQ TAB PO ONE (09:54)
[2021-02-12] MEDS: ACETAMINOPHEN 500 MG TAB PO PRN (10:54)
[2021-02-12] MEDS: DIVALPROEX DR 500MG TAB PO SCH ×2 (10:54→20:17)
[2021-02-12] MEDS: CEFTRIAXONE/SWI 1gm 1 GM/10 ML SYR IV SCH (10:55)
[2021-02-12] MEDS: SERTRALINE HCL 100 MG TAB PO SCH (10:55)
--- NOTE | 2021-02-12 19:11 | P.PN ---
Subjective Date of Service: 02/12/21 Chief Complaint: hypokalemia, hallucinations Patient has no complain. Hypokalemia has resolved. Physical Examination - Vital Signs Temperature: 97.5 F Blood Pressure: 110/63 Pulse: 75 Respirations: 18 Pulse Ox (%): 97 - Physical Exam General: In no apparent distress, Oriented x3 HEENT: Mucous membr. moist/pink Neck: Supple, JVD not distended Respiratory: Clear to auscultation bilaterally, Normal air movement Cardiovascular: No edema, Regular rate/rhythm, Normal S1 S2 Gastrointestinal: Normal bowel sounds, Soft and benign, Non-distended, No tenderness Musculoskeletal: No swelling, No tenderness Integumentary: No rashes Neurological: Normal strength at 5/5 x4 extr, Cranial nerves 3-12 intact Assessment And Plan - Current Problems (Diagnosis) (1) UTI (urinary tract infection) Current Visit: Yes Status: Acute (2) Schizophrenia Current Visit: Yes Status: Acute Qualifiers: Schizophrenia type: unspecified Qualified Code(s): F20.9 - Schizophrenia, unspecified (3) Hypokalemia Current Visit: No Status: Acute (4) Amphetamine abuse Onset Date: 10/31/15 Current Visit: No Status: Chronic (5) Cocaine abuse Onset Date: 10/31/15 Current Visit: No Status: Chronic - Plan Urine culture growing Gram negative rods. Continue IV Rocephin. Case discussed with Dr. Richard. Trial of Risperdal. Behavioral health input appreciated. They recommend inpatient psychiatric. Patient is voluntary. Patient is clinically stable for transfer to inpatient psychiatry.
[2021-02-13] MEDS: IRON PO SCH (09:00)
[2021-02-13] MEDS: CEFTRIAXONE/SWI 1gm 1 GM/10 ML SYR IV SCH (09:00)
[2021-02-13] MEDS: VIT C PO SCH (09:00)
[2021-02-13] MEDS ORDERED: POTASSIUM CL SA 10 MEQ TAB PO ONE (09:00)
[2021-02-13] MEDS: ENOXAPARIN 40 MG/0.4 ML SQ SCH (09:00)
[2021-02-13] MEDS: FOLATE PO SCH (09:00)
[2021-02-13] MEDS: B6 PO SCH (09:00)
[2021-02-13] MEDS: D3 PO SCH (09:00)
[2021-02-13] MEDS: B12 PO SCH (09:00)
[2021-02-13] MEDS: SERTRALINE HCL 100 MG TAB PO SCH (09:48)
[2021-02-13] MEDS: ACETAMINOPHEN 500 MG TAB PO PRN (09:49)
[2021-02-13] MEDS: DIVALPROEX DR 500MG TAB PO SCH ×2 (09:49→21:00)
--- NOTE | 2021-02-13 14:56 | P.PN ---
Subjective Date of Service: 02/13/21 Chief Complaint: hypokalemia, hallucinations Patient is mute today and will not answer my questions. Hypokalemia has resolved. Urine culture: E. coli. Physical Examination - Vital Signs Temperature: 97.1 F Blood Pressure: 106/61 Pulse: 61 Respirations: 17 Pulse Ox (%): 97 - Physical Exam General: In no apparent distress, Other (Awake) Neck: JVD not distended Respiratory: Other (Nonlabored breathing.) Cardiovascular: No edema, Regular rate/rhythm Gastrointestinal: Soft and benign, Non-distended Musculoskeletal: No swelling Integumentary: No rashes Neurological: Normal strength at 5/5 x4 extr, Cranial nerves 3-12 intact - Studies Microbiology Data (last 24 hrs): 02/11/21 05:27 Clean Catch Urine [place] Count - Final >100,000 CFU/ML. 02/11/21 05:27 Clean Catch Urine - Final Escherichia Coli Assessment And Plan - Current Problems (Diagnosis) (1) UTI (urinary tract infection) Current Visit: Yes Status: Acute (2) Schizophrenia Current Visit: Yes Status: Acute Qualifiers: Schizophrenia type: unspecified Qualified Code(s): F20.9 - Schizophrenia, unspecified (3) Hypokalemia Current Visit: No Status: Acute (4) Amphetamine abuse Onset Date: 10/31/15 Current Visit: No Status: Chronic (5) Cocaine abuse Onset Date: 10/31/15 Current Visit: No Status: Chronic - Plan IV Rocephin transition to oral ciprofloxacin. Case discussed with Dr. Richard. Trial of Risperdal at bedtime. Behavioral health input appreciated. They recommend inpatient psychiatric. Patient is voluntary. Patient is clinically stable for transfer to inpatient psychiatry. Awaiting for bed availability to transfer to inpatient psychiatry. Physician Review: Patient Assessed, Agree with Above Assessment and Plan
[2021-02-13] MEDS: CIPROFLOXACIN HCL 500 MG TAB PO SCH (21:00)
[2021-02-13] MEDS ORDERED: RISPERIDONE 1 MG TABLET PO SCH (21:00)
[2021-02-14 06:36] LABS: BUN Blood Urea Nitrogen 15 mg/dL (7-18); Bicarbonate 25 mmol/L (21-32); Glucose Level 83 mg/dL (74-106); Potassium 3.8 mmol/L (3.5-5.1); Sodium Level 141 mmol/L (136-145)
[2021-02-14] MEDS: B6 PO SCH (09:00)
[2021-02-14] MEDS: B12 PO SCH (09:00)
[2021-02-14] MEDS: ENOXAPARIN 40 MG/0.4 ML SQ SCH (09:00)
[2021-02-14] MEDS: IRON PO SCH (09:00)
[2021-02-14] MEDS ORDERED: POTASSIUM CL SA 10 MEQ TAB PO ONE (09:00)
[2021-02-14] MEDS: D3 PO SCH (09:00)
[2021-02-14] MEDS: FOLATE PO SCH (09:00)
[2021-02-14] MEDS: VIT C PO SCH (09:00)
[2021-02-14] MEDS: CIPROFLOXACIN HCL 500 MG TAB PO SCH (09:31)
[2021-02-14] MEDS: DIVALPROEX DR 500MG TAB PO SCH (09:31)
[2021-02-14] MEDS: SERTRALINE HCL 100 MG TAB PO SCH (09:31)
[2021-02-14] MEDS: ACETAMINOPHEN 500 MG TAB PO PRN (09:31)
[2021-02-14 10:31] VITALS: O2SAT 95
[2021-02-14 12:57] VITALS: TEMP 97
--- NOTE | 2021-02-14 17:50 | P.DS ---
Admission Date: 02/11/21 Discharge Date: 02/14/21 Disposition: TRANSFR TO OTHER-PSY/CD/REHAB Discharge Condition: FAIR Reason for Admission: hypokalemia, hallucinations - Problems (1) UTI (urinary tract infection) Current Visit: Yes Status: Acute (2) Schizophrenia Current Visit: Yes Status: Acute Qualifiers: Schizophrenia type: unspecified Qualified Code(s): F20.9 - Schizophrenia, unspecified (3) Hypokalemia Current Visit: No Status: Acute (4) Amphetamine abuse Onset Date: 10/31/15 Current Visit: No Status: Chronic (5) Cocaine abuse Onset Date: 10/31/15 Current Visit: No Status: Chronic (6) Acute psychosis Current Visit: Yes Status: Acute Brief History of Present Illness: 40-year-old woman with a history of schizophrenia was brought to the emergency department by the police because patient was found at [employer] talking to herself and having visual hallucinations. Patient denied any suicidal ideation. She stated she [facility] and that she lost her medications so has not been taking any medications for awhile. Blood work done in the ED showed hypokalemia. Urine toxicology screen was positive for cocaine amphetamine and benzodiazepine. Patient was hospitalized for further management. Hospital Course: Patient admitted to the medical floor. Hypokalemia was corrected with potassium replacement. Her urinalysis suggested the presence of UTI. Urine culture grew E. coli. Patient was treated with IV Rocephin followed by a oral ciprofloxacin. Patient continued to experience visual and auditory hallucinations, was talking to herself and objects in the room. Case discussed with psychiatry Dr. Richard who recommended Risperdal which was started. Behavioral Health saw and evaluated the patient and recommended inpatient psychiatry. The patient has been accepted to inpatient psychiatry at [facility] in [place]. She is deemed clinically stable for discharge. Vital Signs/Physical Exam: Temp Pulse Resp BP Pulse Ox 97 F 65 16 140/64 98 02/14/21 12:00 02/14/21 12:00 02/14/21 12:00 02/14/21 12:00 02/14/21 12:00 General: In no apparent distress, Other (Awake) HEENT: Atraumatic, Mucous membr. moist/pink Neck: Supple, JVD not distended Respiratory: Clear to auscultation bilaterally, Normal air movement Cardiovascular: No edema, Regular rate/rhythm, Normal S1 S2 Gastrointestinal: Normal bowel sounds, Soft and benign, Non-distended, No tenderness Musculoskeletal: No swelling, No tenderness Integumentary: No rashes Neurological: Normal speech, Normal strength at 5/5 x4 extr, Cranial nerves 3-12 intact Laboratory Data at Discharge: WBC 6.90 K/uL (4.3-10.9) D 02/12/21 06:57 Hgb 12.5 g/dL (12.0-15.0) 02/12/21 06:57 Hct 37.9 % (36.0-45.0) 02/12/21 06:57 Plt Count 225 K/uL (152-406) 02/12/21 06:57 PT 12.6 SECONDS (9.5-12.5) H 02/10/21 23:35 INR 1.09 02/10/21 23:35 APTT 26.6 SECONDS (24.3-36.9) 02/10/21 23:35 Sodium 141 mmol/L (136-145) 02/14/21 05:49 Potassium 3.8 mmol/L (3.5-5.1) 02/14/21 05:49 BUN 15 mg/dL (7-18) 02/14/21 05:49 Creatinine 0.52 mg/dL (0.55-1.3) L 02/14/21 05:49 Glucose 83 mg/dL (74-106) 02/14/21 05:49 Phosphorus 4.0 mg/dL (2.5-4.9) 02/12/21 06:57 Magnesium 2.3 mg/dL (1.8-2.4) D 02/12/21 06:57 Total Bilirubin 0.7 mg/dL (0.2-1.0) 02/10/21 23:35 AST 19 U/L (15-37) 02/10/21 23:35 ALT 27 U/L (12-78) 02/10/21 23:35 Alkaline Phosphatase 98 U/L (45-117) 02/10/21 23:35 Home Medications: Sertraline [Zoloft*] 200 mg PO DAILY 10/30/15 Divalproex Sodium [Depakote] 500 mg PO BID 04/09/17 Codeine/APAP [Tylenol #3*] 1 tab PO Q6HP PRN #12 tab 04/11/17 Cyclobenzaprine [Flexeril*] 10 mg PO TID PRN #30 tab 04/11/17 Iron/Folate 9/Vit C/D3/B6/B12 [Nufera Tablet] 1 each PO DAILY #30 tablet 04/11/17 risperiDONE [Risperdal 1 mg tab*] 1 mg PO BEDTIME tab 02/14/21 Diet: Regular Activity: Ad osvaldo Followup: NONE,NONE [Primary Care Provider] - Time spent managing pt's care (in minutes): 36
[2021-02-14 18:03] VITALS: BP 103/65
== END 2021-02-14 19:47 | disposition left against medical advice (07) | DRG 641 ==
LOC: ER 23:02 → ERHOLD 02-11 02:05 → OBSVTOIN 02-11 08:01 → 2ND 02-11 19:26
PROVIDERS: ADMIT Internal Medicine; ATTEND Internal Medicine
DX: E87.6 Hypokalemia (principal); N39.0 Urinary tract infection, site not specified; F23 Brief psychotic disorder; F15.10 Other stimulant abuse, uncomplicated; F14.10 Cocaine abuse, uncomplicated; F31.70 Bipolar disorder, currently in remission, most recent episode unspecified; F20.9 Schizophrenia, unspecified; B96.20 Unspecified Escherichia coli [E. coli] as the cause of diseases classified elsewhere; K21.9 Gastro-esophageal reflux disease without esophagitis; Z79.899 Other long term (current) drug therapy; Z87.891 Personal history of nicotine dependence; Z20.822 Contact with and (suspected) exposure to COVID-19
CPT/HCPCS: 36415; 80048; 80076; 80307; 80320; 80329; 81003; 81015; 81025; 83735; 84100; 84132; 84439; 84443; 85025; 85610; 85730; 87077; 87086; 87088; 87186; 93005; 96361; 96365; 96366; 96375; 99285; G0378; J0696; J1200; J1630; J1650; J3480; U0003

== ENCOUNTER 2021-06-14 21:28 | Emergency (ER) | payer SELFPAY ==
--- OUTSIDE RECORDS SUMMARY | 2021-06-14 21:31 | XMS REPORT | Continuity of Care Document ---
:[address] [facility] t Address [address] [place] [address] Care Team Providers Name Role Phone Daija Barroso Attending Clinician Problems This patient has no known problems. Allergies, Adverse Reactions, Alerts This patient has no known allergies or adverse reactions. Medications This patient has no known medications. Procedures This patient has no known procedures. Encounters Start End Encounter Admission Attending Care Care Encounter Source Date/Time Date/Time Type Type Clinicians Facility Department ID 2021-02-20 2021-02-20 Office SARAHI Ortiz [id number] 04 08:14:33 09:15:57 Visit Arsenio Choe [employer] [id number] [facility] [id number] MATERNAL [id number] & CHILD [address] [place] [address] Results Test Description Test Time Test Comments Results Result Comments Source ABO/RH 2018-02-15 08:21:00 Test Item Value Reference Range Interpretation Comme nts BLOOD TYPE (test code = TYPE) O Rh Positive Comment for Females Rhogam may be i ndicated for patient depending baby' s Rh status. BMP, BASIC METABOLIC [id number] 04:05:00 Test Item Value Reference Range Interpretation [...] glucose = GLUCOSE) normal <100 MG/ DL- [place] recommendation* * CALCIUM (test code 9.6 MG/DL 8.4-10.2 = CABLOOD) GFR (test code = 120 A GFR of >9 0 GFR) mL/min/1.73m2 mL/min/1.73m2 is considered norm al. B-HCG, [id number] 04:05:00 Test Item Value Reference Range Interpretation [...] is cons idered POSITIVE. Updat ed: 03/29/2010 [id number] 03:44:00 Test Item Value Reference Range Interpretation [...] 1.000-1.025 UAMICRO (test code = UAMICRO) NO [id number] 03:27:00 Test Item Value Reference Range Interpretation [...]
[2021-06-15] MEDS ORDERED: ACETAMINOPHEN 500 MG TAB ONE (01:49)
[2021-06-15 02:34] LABS: Absolute Lymphocytes (CBC) 2.5 K/uL (0.7-4.9); Basophils % 0.8 % (0-1.3); Hematocrit 37.8 % (36.0-45.0); Lymphocytes % 28.4 % (15.3-44.8); MPV 9.9 fL (7.6-11.3); RBC Red Blood Cell Count 4.15 M/uL (3.86-4.86)
[2021-06-15 02:50] LABS: Protime INR 0.98
[2021-06-15 02:51] LABS: ALT/SGPT 47 U/L (12-78); AST/SGOT 62 U/L (15-37); Albumin 3.6 g/dL (3.4-5.0); Alkaline Phosphatase 95 U/L (45-117); BUN Blood Urea Nitrogen 18 mg/dL (7-18); Bicarbonate 26 mmol/L (21-32); Bilirubin Direct 0.1 mg/dL (0-0.2); Bilirubin Total 0.6 mg/dL (0.2-1.0); Glucose Level 102 mg/dL (74-106); Potassium 3.2 mmol/L (3.5-5.1); Sodium Level 142 mmol/L (136-145)
--- NOTE | 2021-06-15 08:25 | ER ---
Nurse's Notes [facility] Name: Santi Stinson Age: 40 yrs Sex: Female : 1980 Arrival Date: 06/14/2021 Time: 21:30 Bed 20 Private MD: Diagnosis: Delusional disorders Presentation: 06/14 21:35 Chief complaint: EMS states: Called to police station for patient, who would not leave lp1 custodial cell after being released; appears altered, rambling words. 21:35 Method Of Arrival: EMS: [facility] lp1 23:39 Onset of symptoms was June 14, 2021. lp1 23:40 Risk Assessment: Do you want to hurt yourself or someone else? Patient reports no lp1 desire to harm self or others. Note Patient reports "I need xrays on my feet and I need an MRI on my head because they say I'm not well in the head"; Patient uncooperative with answering questions, reports "I'm only answering yes and no questions". 23:40 Acuity: SAMANTHA 3 lp1 23:44 Coronavirus screen: Client denies travel out of the [place] in the last 14 days. At this lp1 time, the client does not indicate any symptoms associated with coronavirus-19. Ebola Screen: No symptoms or risks identified at this time. Initial Sepsis Screen: Does the patient meet any 2 criteria? No. Patient's initial sepsis screen is negative. Does the patient have a suspected source of infection? No. Patient's initial sepsis screen is negative. 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 - Social history:: Smoking status: Patient reports the use of cigarette tobacco products, smokes two packs cigarettes per day. Patient uses alcohol, street drugs, cocaine, marijuana. Screenin/25 00:50 Abuse screen: Denies threats or abuse. Denies injuries from another. Nutritional bs2 screening: No deficits noted. Tuberculosis screening: No symptoms or risk factors identified. Fall Risk None identified. Assessment: 00:50 General: Appears in no apparent distress. obese, unkempt, well developed, Behavior is bs2 agitated, anxious, restless. Pain: Complains of pain in right foot and left foot Pain currently is 10 out of 10 on a pain scale. Neuro: No deficits noted. Cardiovascular: No deficits noted. Respiratory: No deficits noted. GI: No signs and/or symptoms were reported involving the gastrointestinal system. : No signs and/or symptoms were reported regarding the genitourinary system. EENT: No signs and/or symptoms were reported regarding the EENT system. Derm: No signs and/or symptoms reported regarding the dermatologic system. Musculoskeletal: Reports pain in right foot and left foot. 00:50 General: as soon as pt was placed in room she requested a mandawhich, judie, a pitcher bs2 of water, pillow, 2 blankets and pain medications,. 01:05 General: went to draw pt labs and pt demanded pain medications, stating the "strongest bs2 thing we have" pt refused to let us draw blood with out it. . 01:15 General: pt was offered Tylenol with codeine she refused stating she had to have bs2 something stronger and not in pill form, pt began to get more agitated and cussing at me. . 01:25 General: reported to Dr Rob, and datawarehouse developer was present she attempted to bs2 explain to pt that we needed blood work before we could give any other medications, pt became very irate, cussing at both datawarehouse developer and myself, pt also threatened and stated she wanted a different dr and a different nurse, this was reported back to Dr Rob and ERASTO was contacted. . 02:30 General: PD arrived pt became much more calm, but when labs were being drawn I asked bs2 pt to hold still and pt began cussing and threatening by telling me " I am not moving, do not talk to me that way, I will murder your bitch ass" [place] [employer] stepped up telling pt to be very careful with what she said and not to be threatening me that way, pt continued to threaten with endoscopy nurse reminding her that she needed to be very careful with what she said next and that he would take her back to custodial. once blood was draw pt informed me to " get the fuck out of my room and do not come back in here" pt also once again threatened me. . 02:35 General: pt refused to answer any more questions in order to complete charting. . bs2 07:00 Reassessment: RECD REPORT FROM CONSTANZA CROFT. 40YO WF P/W AGITATION AND BILATERAL FOOT bp PAIN. PT REFUSING ALL MEDICAL TREATMENT AND REFUSING TO SPEAK WITH STAFF. 09:43 Reassessment: PT D/C FROM ER, CONTINUING TO THREATEN STAFF. bp Vital Signs: 06/14 23:44 BP 125 / 87; Pulse 92; Resp 18; Temp 97.7(O); Pulse Ox 99% on R/A; Weight 95.25 kg; lp1 Height 5 ft. 4 in. (162.56 cm); Pain 0/10; 06/15 07:00 bp 06/14 23:44 Body Mass Index 36.05 (95.25 kg, 162.56 cm) lp1 07:00 PT REFUSED bp ED Course: 06/14 21:30 Patient arrived in ED. do 23:40 Arm band placed on left wrist. lp1 23:42 Triage completed. lp1 06/15 00:47 Constanza Samuels, RN is Primary Nurse. bs2 00:48 Teo Rob MD is Attending Physician. mh7 00:50 Appears agitated. Appears angry. Appears upset. bs2 00:50 Patient has correct armband on for positive identification. Door closed. Noise bs2 minimized. Warm blanket given. Pillow given. Diet tray given. PO fluids given. 07:14 Primary Nurse role handed off by Constanza Samuels, LANG bp 07:14 Wil Tyler, RN is Primary Nurse. bp 09:44 No provider procedures requiring assistance completed. Patient did not have IV access bp during this emergency room visit. Administered Medications: No medications were administered Outcome: 08:25 Discharge ordered by . ma2 09:38 Patient left the ED. iw 09:44 Discharged to Unknown bp 09:44 Condition: stable 09:44 Discharge instructions given to patient, Instructed on discharge instructions, follow up and referral plans. Demonstrated understanding of instructions, follow-up care. Signatures: Airam Comer RN RN Liyah Rocha RN RN [facility] Harriett Vincent Brian, RN RN bp Caleb Marina MD MD ma2 Teo Rob MD MD 7 Constanza Samuels RN RN bs2 Corrections: (The following items were deleted from the chart) 07:05 07:03 General: bs2 bs2
--- NOTE | 2021-06-15 08:26 | EDPHYS ---
Physician Documentation [facility] Name: Santi Stinson Age: 40 yrs Sex: Female : 1980 Arrival Date: 06/14/2021 Time: 21:30 Bed 20 Private MD: ED Physician Teo Rob HPI: 06/15 01:05 This 40 yrs old Female presents to ER via EMS with complaints of Psych mh7 Problem. 01:05 The patient presents to the emergency department with psychosis, has experienced mh7 auditory hallucinations. Onset: The symptoms/episode began/occurred at an unknown time. Past psychiatric history: Prior diagnosis: bipolar disorder, depression, Psychiatric medications include:. 01:58 Associated signs and symptoms: The patient has no apparent associated signs or mh7 symptoms. Severity of symptoms: At their worst the symptoms were moderate today, in the emergency department the symptoms are unchanged. Patient was in [facility] and refused to leave when she was discharged. She refuses to answer questions. She has been seen responding to internal stimuli and conversing with herself.. 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 - Social history:: Smoking status: Patient reports the use of cigarette tobacco products, smokes two packs cigarettes per day. Patient uses alcohol, street drugs, cocaine, marijuana. ROS: 06/15 01:58 Unable to obtain ROS due to patient being uncooperative, Refuses to answer questions. mh7 Exam: 01:05 Head/Face: Normocephalic, atraumatic. Eyes: Pupils equal round and reactive to light, mh7 extra-ocular motions intact. Lids and lashes normal. Conjunctiva and sclera are non-icteric and not injected. Cornea within normal limits. Periorbital areas with no swelling, redness, or edema. Neck: Trachea midline, no thyromegaly or masses palpated, and no cervical lymphadenopathy. Supple, full range of motion without nuchal rigidity, or vertebral point tenderness. No Meningismus. Chest/axilla: Normal chest wall appearance and motion. Nontender with no deformity. No lesions are appreciated. Cardiovascular: Regular rate and rhythm with a normal S1 and S2. No gallops, murmurs, or rubs. Normal PMI, no JVD. No pulse deficits. Respiratory: Lungs have equal breath sounds bilaterally, clear to auscultation and percussion. No rales, rhonchi or wheezes noted. No increased work of breathing, no retractions or nasal flaring. Abdomen/GI: Soft, non-tender, with normal bowel sounds. No distension or tympany. No guarding or rebound. No evidence of tenderness throughout. Back: No spinal tenderness. No costovertebral tenderness. Full range of motion. Skin: Warm, dry with normal turgor. Normal color with no rashes, no lesions, and no evidence of cellulitis. MS/ Extremity: Pulses equal, no cyanosis. Neurovascular intact. Full, normal range of motion. 01:05 Constitutional: The patient appears in no acute distress, alert, awake, unkempt. 01:05 Neuro: 01:05 Neuro: Awake and alert, GCS 15, oriented to person, place, time, and situation. mh7 Cranial nerves II-XII grossly intact. Motor strength 5/5 in all extremities. Sensory grossly intact. Cerebellar exam normal. Normal gait. 01:05 Psych: Behavior/mood is uncooperative, angry, Affect is flat, Oriented to person, place, time, Refuses to answer question, Judgement / Insight is impaired. Memory is normal. Delusions/hallucinations are present and described as Appears to be responding to internal stimuli. Witnessed talking to herself.. Vital Signs: 06/14 23:44 BP 125 / 87; Pulse 92; Resp 18; Temp 97.7(O); Pulse Ox 99% on R/A; Weight 95.25 kg; lp1 Height 5 ft. 4 in. (162.56 cm); Pain 0/10; 06/15 07:00 bp 06/14 23:44 Body Mass Index 36.05 (95.25 kg, 162.56 cm) lp1 07:00 PT REFUSED bp MDM: 07:04 Transition of care: After a detail discussion of the patient's case, care is 7 transferred to Caleb Marina MD. 08:24 Differential diagnosis: drug withdrawal. acute psychotic break, depression, psychosis ma2 secondary to non-compliance. Data reviewed: vital signs, nurses notes. Counseling: I had a detailed discussion with the patient and/or guardian regarding: the historical points, exam findings, and any diagnostic results supporting the discharge/admit diagnosis, the presence of at least one elevated blood pressure reading (>120/80) during this emergency department visit, the need for outpatient follow up. Response to treatment: There is no appreciated change of the patient's symptoms at this time. 08:25 Patient medically screened. [facility] 06/15 01:10 Order name: Acetaminophen [facility] 06/15 01:10 Order name: Basic Metabolic Panel [facility] 06/15 01:10 Order name: CBC with Diff; Complete Time: 02:56 [facility] 06/15 01:10 Order name: ETOH Level; Complete Time: 05:24 [facility] 06/15 01:10 Order name: Hepatic Function; Complete Time: 02: [facility] 06/15 01:10 Order name: PT-INR; Complete Time: 02:56 [facility] 06/15 01:10 Order name: Ptt, Activated; Complete Time: 02:56 [facility] 06/15 01:10 Order name: Salicylate; Complete Time: 02:56 [facility] 06/15 01:10 Order name: EKG - Nurse/Tech [facility] 06/15 01:11 Order name: Acetaminophen Level; Complete Time: 02:56 [facility] 06/15 01:11 Order name: Basic Metabolic Panel; Complete Time: 02:56 [facility] 06/15 01:10 Order name: IV Saline Lock [facility] 06/15 01:10 Order name: Labs collected and sent [facility] 06/15 01:10 Order name: Suicide Screening ([place]) [facility] 06/15 01:10 Order name: Urine Dipstick-Ancillary (obtain specimen) [facility] Administered Medications: No medications were administered Disposition Summary: 06/15/21 08:25 Discharge Ordered Location: Home ma2 Condition: Stable ma2 Diagnosis - Delusional disorders ma2 Followup: ma2 - With: Private Physician - When: Tomorrow - Reason: If symptoms return, Continuance of care Discharge Instructions: - Discharge Summary Sheet ma2 - Psychosis ma2 Forms: - Medication Reconciliation Form ma2 - Thank You Letter ma2 - Antibiotic Education ma2 - Prescription Opioid Use ma2 Signatures: Dispatcher [employer] EDMS Rocha, Liyah, RN RN lp1 Caleb Marina MD MD ma2 Teo Rob MD MD 7
[2021-06-15 09:47] VITALS: BP 125/87; TEMP 97.7; O2SAT 99
== END 2021-06-15 09:38 | disposition home or self-care (01) ==
LOC: ER 21:28
DX: F22 Delusional disorders (principal); F31.9 Bipolar disorder, unspecified
CPT/HCPCS: 36415; 80048; 80076; 80320; 80329; 85025; 85610; 85730; 99283

== ENCOUNTER 2021-06-19 03:11 | Emergency (ER) | payer SELFPAY ==
--- OUTSIDE RECORDS SUMMARY | 2021-06-19 03:14 | XMS REPORT | Continuity of Care Document ---
:1980 Author Organization [facility] t Address [address] [place] [address] Care Team Providers Name Role Phone Unavailable [...] baby' s Rh status. BMP, BASIC METABOLIC [id number] 04:05:00 Test Item Value Reference Range Interpretation [...] glucose = GLUCOSE) normal <100 MG/ DL- [place] recommendation* * CALCIUM (test code 9.6 MG/DL 8.4-10.2 = CABLOOD) GFR (test code = 120 A GFR of >9 0 GFR) mL/min/1.73m2 mL/min/1.73m2 is considered norm al. B-HCG, [id number] 04:05:00 Test Item Value Reference Range Interpretation [...] is cons idered POSITIVE. Updat ed: 03/29/2010 [id number] 03:44:00 Test Item Value Reference Range Interpretation [...] 1.000-1.025 UAMICRO (test code = UAMICRO) NO [id number] 03:27:00 Test Item Value Reference Range Interpretation [...]
[2021-06-19 03:46] LABS: Absolute Lymphocytes (CBC) 1.6 K/uL (0.7-4.9); Hematocrit 38.4 % (36.0-45.0); Lymphocytes % 20.5 % (15.3-44.8); MPV 9.7 fL (7.6-11.3); RBC Red Blood Cell Count 4.15 M/uL (3.86-4.86)
[2021-06-19 03:47] LABS: Protime INR 1.04
[2021-06-19 04:03] LABS: ALT/SGPT 33 U/L (12-78); AST/SGOT 26 U/L (15-37); Albumin 3.4 g/dL (3.4-5.0); Alkaline Phosphatase 80 U/L (45-117); BUN Blood Urea Nitrogen 6 mg/dL (7-18); Bicarbonate 22 mmol/L (21-32); Bilirubin Direct 0.1 mg/dL (0-0.2); Bilirubin Total 0.4 mg/dL (0.2-1.0); Glucose Level 95 mg/dL (74-106); Protein, Total 6.8 g/dL (6.4-8.2); Sodium Level 143 mmol/L (136-145)
[2021-06-19 04:04] LABS: Potassium 2.9 mmol/L (3.5-5.1)
--- NOTE | 2021-06-19 04:26 | EDPHYS ---
Physician Documentation [facility] Name: Santi Stinson Age: 40 yrs Sex: Female : 1980 Arrival Date: 06/19/2021 Time: 03:13 Bed 8 Private MD: ED Physician Caleb Marina HPI: 06/19 03:32 This 40 yrs old Female presents to ER via EMS with complaints of Foot Pain. ma2 03:41 This 40 yrs old Female presents to ER via EMS with complaints of confusion. ma2 03:41 Onset: The symptoms/episode began/occurred gradually, 1 day(s) ago. Associated signs ma2 and symptoms: Pertinent negatives: numbness, swelling, tingling. Severity of symptoms: At their worst the symptoms were moderate, in the emergency department the symptoms are unchanged. The patient has experienced similar episodes in the past. 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 Patient does not have any symptom, she is alert oriented,. Historical: - Allergies: 03:16 No Known Allergies; ad5 - PMHx: 03:16 ADD/ADHD; Anxiety; Bipolar disorder; Depression; Gastric Reflux; Pre-eclampsia; ad5 Seizures; - Immunization history:: Adult Immunizations unknown. - Social history:: Smoking status: unknown. - Family history:: not pertinent. ROS: 03:41 MS/extremity: Negative for injury or acute deformity. ma2 03:41 Constitutional: Negative for fever, chills, and weight loss. 03:41 All other systems are negative. Exam: 03:41 Constitutional: This is a well developed, well nourished patient who is awake, alert, ma2 and in no acute distress. Head/Face: Normocephalic, atraumatic. Eyes: Pupils equal round and reactive to light, extra-ocular motions intact. Lids and lashes normal. Conjunctiva and sclera are non-icteric and not injected. Cornea within normal limits. Periorbital areas with no swelling, redness, or edema. ENT: Nares patent. No nasal discharge, no septal abnormalities noted. Tympanic membranes are normal and external auditory canals are clear. Oropharynx with no redness, swelling, or masses, exudates, or evidence of obstruction, uvula midline. Mucous membranes moist. Neck: Trachea midline, no thyromegaly or masses palpated, and no cervical lymphadenopathy. Supple, full range of motion without nuchal rigidity, or vertebral point tenderness. No Meningismus. Chest/axilla: Normal chest wall appearance and motion. Nontender with no deformity. No lesions are appreciated. Cardiovascular: Regular rate and rhythm with a normal S1 and S2. No gallops, murmurs, or rubs. Normal PMI, no JVD. No pulse deficits. Respiratory: Lungs have equal breath sounds bilaterally, clear to auscultation and percussion. No rales, rhonchi or wheezes noted. No increased work of breathing, no retractions or nasal flaring. Abdomen/GI: Soft, non-tender, with normal bowel sounds. No distension or tympany. No guarding or rebound. No evidence of tenderness throughout. Skin: Warm, dry with normal turgor. Normal color with no rashes, no lesions, and no evidence of cellulitis. MS/ Extremity: Pulses equal, no cyanosis. Neurovascular intact. Full, normal range of motion. Neuro: Awake and alert, GCS 15, oriented to person, place, time, and situation. Cranial nerves II-XII grossly intact. Motor strength 5/5 in all extremities. Sensory grossly intact. Cerebellar exam normal. Normal gait. Psych: Awake, alert, with orientation to person, place and time. Behavior, mood, and affect are within normal limits. Vital Signs: 03:14 BP 132 / 76; Pulse 100; Resp 16 S; Temp 98.8(TE); Pulse Ox 99% on R/A; Weight 83.91 kg; ad5 Height 5 ft. 4 in. (162.56 cm); Pain 4/10; 03:14 Body Mass Index 31.75 (83.91 kg, 162.56 cm) ad5 MDM: 03:15 Patient medically screened. ma2 04:24 Differential diagnosis: sprain, arthritis, delusions, vs drug use]. Data reviewed: ma2 vital signs, nurses notes. Counseling: I had a detailed discussion with the patient and/or guardian regarding: the historical points, exam findings, and any diagnostic results supporting the discharge/admit diagnosis, the presence of at least one elevated blood pressure reading (>120/80) during this emergency department visit, the need for outpatient follow up. Medical screen evaluation completed. EMTALA emergency medical condition absent. Response to treatment: the patient's symptoms have markedly improved after treatment. 06/19 03:16 Order name: Acetaminophen; Complete Time: 04:24 [facility] 06/19 03:16 Order name: Basic Metabolic Panel; Complete Time: 04:24 [facility] 03:16 Order name: CBC with Diff; Complete Time: 04:24 [facility]/19 03:16 Order name: ETOH Level; Complete Time: 04:24 [facility]06/19 03:16 Order name: Hepatic Function; Complete Time: 04:24 [place]06/19 03:16 Order name: PT-INR; Complete Time: 04:24 [place]06/19 03:16 Order name: Ptt, Activated; Complete Time: 04:24 [facility] 06/19 03:16 Order name: Salicylate [facility] 06/19 03:16 Order name: EKG; Complete Time: 03:17 [place]06/19 03:16 Order name: EKG - Nurse/Tech; Complete Time: 04:25 [facility] 06/19 03:16 Order name: Labs collected and sent; Complete Time: 03:34 [place]06/19 03:17 Order name: CT Head Brain wo Cont ma2 Administered Medications: No medications were administered Disposition Summary: 06/19/21 04:25 Discharge Ordered Location: Home ma2 Condition: Stable ma2 Diagnosis - Delusional disorders ma2 Followup: ma2 - With: Private Physician - When: Tomorrow - Reason: Continuance of care Discharge Instructions: - Discharge Summary Sheet ma2 - Psychosis ma2 Forms: - Medication Reconciliation Form ma2 - Thank You Letter ma2 - Antibiotic Education ma2 - Prescription Opioid Use ma2 Signatures: Dispatcher [employer] EDMS Caleb Marina MD MD ma2 Ste[facility] ad5 Corrections: (The following items were deleted from the chart) 03:17 03:16 Social history: Smoking status: unknown Patient/guardian denies using ad5 ad5
--- NOTE | 2021-06-19 04:26 | ER ---
Nurse's Notes [facility] Name: Santi Stinson Age: 40 yrs Sex: Female : 1980 Arrival Date: 06/19/2021 Time: 03:13 Bed 8 Private MD: Diagnosis: Delusional disorders Presentation: 06/19 03:14 Chief complaint: EMS states: Pt BIB EMS when found by PD on side of road, reported ad5 confusion by PD and EMS notified of need for pt transfer. Pt only c/o lynette foot pain upon arrival to ED, states "I've been walking". Pt denies known injury. Ambulatory to ED stretcher without difficulty, steady gait noted. Pt with flat affect, answers questions appropriately. Coronavirus screen: At this time, the client does not indicate any symptoms associated with coronavirus-19. Ebola Screen: No symptoms or risks identified at this time. Initial Sepsis Screen: Does the patient meet any 2 criteria? HR > 90 bpm. No. Patient's initial sepsis screen is negative. Does the patient have a suspected source of infection? No. Patient's initial sepsis screen is negative. Risk Assessment: Do you want to hurt yourself or someone else? Patient reports no desire to harm self or others. Onset of symptoms is unknown. 03:14 Method Of Arrival: EMS ad5 03:14 Acuity: SAMANTHA 3 ad5 Triage Assessment: 03:17 General: Appears unkempt, Behavior is flat. Pain: Complains of pain in lynette feet. ad5 Historical: - Allergies: 03:16 No Known Allergies; ad5 - PMHx: 03:16 ADD/ADHD; Anxiety; Bipolar disorder; Depression; Gastric Reflux; Pre-eclampsia; ad5 Seizures; - Immunization history:: Adult Immunizations unknown. - Social history:: Smoking status: unknown. - Family history:: not pertinent. Screenin:20 Abuse screen: Denies threats or abuse. Denies injuries from another. Nutritional ad5 screening: No deficits noted. Tuberculosis screening: No symptoms or risk factors identified. Fall Risk None identified. Assessment: 03:17 General: Appears in no apparent distress. unkempt, Behavior is cooperative, flat. ad5 Neuro: Level of Consciousness is awake, alert, obeys commands, Oriented to person, place, situation. Cardiovascular: Capillary refill < 3 seconds Patient's skin is warm and dry. Cardiovascular: Pulses are all present. Respiratory: Airway is patent Respiratory effort is even, unlabored, Respiratory pattern is regular, symmetrical. GI: No deficits noted. No signs and/or symptoms were reported involving the gastrointestinal system. : No deficits noted. No signs and/or symptoms were reported regarding the genitourinary system. Derm: Skin is pink, warm \\T\\ dry. Musculoskeletal: Reports pain in lynette foot pain from "walking". 05:18 Reassessment: Patient and/or family updated on plan of care and expected duration. Pain ea level reassessed. Patient is alert, oriented x 3, equal unlabored respirations, skin warm/dry/pink. Discharge instruction given to patient verbalized the understanding of instruction. Vital Signs: 03:14 BP 132 / 76; Pulse 100; Resp 16 S; Temp 98.8(TE); Pulse Ox 99% on R/A; Weight 83.91 kg; ad5 Height 5 ft. 4 in. (162.56 cm); Pain 4/10; 03:14 Body Mass Index 31.75 (83.91 kg, 162.56 cm) ad5 ED Course: 03:13 Patient arrived in ED. ad5 03:15 Caleb Marina MD is Attending Physician. ma2 03:16 Triage completed. ad5 03:17 Arm band placed on. ad5 03:21 Patient has correct armband on for positive identification. Call light in reach. Side ad5 rails up X2. Warm blanket given. Head of bed elevated. 03:22 Steffen French is Primary Nurse. ad5 03:42 CT Head Brain wo Cont In Process Unspecified. EDMS 04:06 Notified ED physician of a critical lab result(s). K 2.9. ad5 05:16 No provider procedures requiring assistance completed. Patient did not have IV access ea during this emergency room visit. Administered Medications: No medications were administered Outcome: 04:25 Discharge ordered by . johnnie 05:16 Discharged to home ambulatory. ea 05:16 Condition: stable 05:16 Discharge instructions given to patient, Instructed on discharge instructions, follow up and referral plans. Demonstrated understanding of instructions, follow-up care. 05:20 Patient left the ED. ea Signatures: Dispatcher [employer] EDMS Sarita Pruett RN RN ea Alzahri, Mohammad, MD MD ma2 Davidson, Andrea ad5 Corrections: (The following items were deleted from the chart) 03:17 03:16 Social history: Smoking status: unknown Patient/guardian denies using ad5 ad5
--- NOTE | 2021-06-19 11:13 | RAD REPORT ---
EXAM DESCRIPTION: CT - Head Brain Wo Cont - 06/19/2021 6:24 am CLINICAL HISTORY: The patient is 40 years old and is Female; CONFUSED TECHNIQUE: Axial computed tomography images of the head/brain without intravenous contrast. Sagitt al and coronal reformatted images were created and reviewed. This CT exam was performed using one o r more of the following dose reduction techniques: automated exposure control, adjustment of the mA and/or kV according to patient size, and/or use of iterative reconstruction technique. COMPARISON: No relevant prior studies available. FINDINGS: Brain: Unremarkable. No hemorrhage. No significant white matter disease. No edema. Ventricles: Unremarkable. No ventriculomegaly. Bones/joints: Unremarkable. No acute fracture. Soft tissues: Unremarkable. Sinuses: Unremarkable as visualized. Mastoid air cells: Unremarkable as visualized. No mastoid effusion. IMPRESSION: No acute intracranial abnormality. Electronically signed by: Tremayne Matthews MD 06/19/2021 5:01 AM CDT Due to temporary technical issues with the PACS/Fluency reporting system, reports are being signed by the in house radiologist without review as a courtesy to ensure prompt reporting. The interpreting r adiologist is fully responsible for the content of the report.
[2021-06-19 19:13] VITALS: BP 132/76; TEMP 98.8; O2SAT 99
== END 2021-06-19 05:20 | disposition home or self-care (01) ==
LOC: ER 03:11
DX: F22 Delusional disorders (principal)
CPT/HCPCS: 36415; 70450; 80048; 80076; 80320; 80329; 85025; 85610; 85730; 93005; 99283

== ENCOUNTER 2021-08-02 10:23 | Emergency (ER) | payer SELFPAY ==
--- OUTSIDE RECORDS SUMMARY | 2021-08-02 10:27 | XMS REPORT | Continuity of Care Document ---
:1980 Author Organization [facility] t Address [address] [place] [address] Care Team Providers Name Role Phone Daija [...] ID 2021-02-20 2021-02-20 Office SARAHI Ortiz [id number] 04 08:14:33 09:15:57 Visit Arsenio Choe ROBOTICS MECHANIC [id number] [facility] [id number] MATERNAL [phone] & CHILD [address] [place] [address] Results Test Description Test Time Test Comments Results Result Comments Source ABO/RH 2018-02-15 08:21:00 Test Item Value Reference Range Interpretation Comme nts BLOOD TYPE (test code = TYPE) O Rh Positive Comment for Females Rhogam may be i ndicated for patient depending baby' s Rh status. BMP, BASIC METABOLIC [id number] 04:05:00 Test Item Value Reference Range Interpretation [...] glucose = GLUCOSE) normal <100 MG/ DL- [employer] recommendation* * CALCIUM (test code 9.6 MG/DL 8.4-10.2 = CABLOOD) GFR (test code = 120 A GFR of >9 0 GFR) mL/min/1.73m2 mL/min/1.73m2 is considered norm al. B-HCG, [id number] 04:05:00 Test Item Value Reference Range Interpretation [...] is cons idered POSITIVE. Updat ed: 03/29/2010 [id number] 03:44:00 Test Item Value Reference Range Interpretation [...] 1.000-1.025 UAMICRO (test code = UAMICRO) NO [id number] 03:27:00 Test Item Value Reference Range Interpretation [...]
[2021-08-02 11:02] LABS: Absolute Lymphocytes (CBC) 1.1 K/uL (0.7-4.9); Basophils % 0.7 % (0-1.3); Hematocrit 38.8 % (36.0-45.0); Lymphocytes % 14.2 % (15.3-44.8); MPV 9.9 fL (7.6-11.3); RBC Red Blood Cell Count 4.18 M/uL (3.86-4.86)
[2021-08-02] MEDS ORDERED: NA CHLORIDE 0.9% 1,000 ML ONE ×2 (11:18→13:09)
[2021-08-02 11:50] LABS: ALT/SGPT 20 U/L (12-78); AST/SGOT 18 U/L (15-37); Albumin 3.7 g/dL (3.4-5.0); Alkaline Phosphatase 95 U/L (45-117); BUN Blood Urea Nitrogen 5 mg/dL (7-18); Bicarbonate 25 mmol/L (21-32); Bilirubin Direct 0.1 mg/dL (0-0.2); Bilirubin Total 0.4 mg/dL (0.2-1.0); Glucose Level 75 mg/dL (74-106); Potassium 2.7 mmol/L (3.5-5.1); Protein, Total 7.5 g/dL (6.4-8.2); Sodium Level 141 mmol/L (136-145)
[2021-08-02] MEDS ORDERED: WATER FOR INJ,STERILE 10 ML ONE (12:11)
[2021-08-02] MEDS ORDERED: ZIPRASIDONE MESYLA 20 MG/VIAL IM ONE (12:11)
[2021-08-02] MEDS ORDERED: POTASSIUM 25 MEQ EFFERV TAB ONE (12:29)
[2021-08-02] MEDS ORDERED: KCL 20 MEQ/100 mL IVPB 20 MEQ/100 ML BAG IV ONE (12:29)
[2021-08-02] MEDS ORDERED: LORazepam 2 MG/ML VIAL ONE (12:38)
[2021-08-02 13:09] LABS: Protime INR 1.04
[2021-08-02 14:08] LABS: Urine Blood Negative (Negative); Urine Glucose Negative (Negative); Urine Protein Negative (Negative); Urine Specific Gravity 1.015 (1.005-1.030)
[2021-08-02 14:43] LABS: Barbiturates NEGATIVE (NEGATIVE); Benzodiazepines NEGATIVE (NEGATIVE); Cocaine NEGATIVE (NEGATIVE); METHAMPHETAM NEGATIVE (NEGATIVE); Methadone NEGATIVE (NEGATIVE); Opiates NEGATIVE (NEGATIVE); Phencyclidine NEGATIVE (NEGATIVE); THC Cannibis POSITIVE (NEGATIVE)
[2021-08-02 15:28] LABS: Urine Specific Gravity/Preg 1.015 (1.005-1.030)
--- NOTE | 2021-08-02 16:44 | ER ---
Nurse's Notes [facility] Name: Santi Stinson Age: 40 yrs Sex: Female : 1980 Arrival Date: 08/02/2021 Time: 10:25 Bed 17 Private MD: Diagnosis: Delusional disorders;Cannabis abuse Presentation: 08/02 10:31 Chief complaint: Patient states: Homeless, out of sorts, banging on doors. Talking to ll1 herself. Denies SI/HI at this time. Released by PD. Coronavirus screen: Client denies travel out of the [place] in the last 14 days. At this time, the client does not indicate any symptoms associated with coronavirus-19. Ebola Screen: Patient denies travel to an Ebola-affected area in the 21 days before illness onset. Initial Sepsis Screen: Does the patient meet any 2 criteria? HR > 90 bpm. No. Patient's initial sepsis screen is negative. Does the patient have a suspected source of infection? No. Patient's initial sepsis screen is negative. Risk Assessment: Do you want to hurt yourself or someone else? Patient reports no desire to harm self or others. Onset of symptoms was August 02, 2021. 10:31 Method Of Arrival: Ambulatory 1 10:31 Acuity: SAMANTHA 2 ll1 Triage Assessment: 10:31 General: Appears unkempt, Behavior is agitated, anxious, restless, uncooperative. Pain: ll1 Denies pain. EENT: No deficits noted. Neuro: Level of Consciousness is awake, alert, Oriented to person, place, Moves all extremities. Full function Speech is normal, Facial symmetry appears normal, Denies headache. Cardiovascular: No deficits noted. Respiratory: No deficits noted. GI: No deficits noted. 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 - Social history:: Smoking status: Patient denies any tobacco usage or history of. Screenin:01 Abuse screen: Denies threats or abuse. Nutritional screening: No deficits noted. ll1 Tuberculosis screening: No symptoms or risk factors identified. Fall Risk Fall in past 12 months (25 points). IV access (20 points). Mental Status- Overestimates/Forgets Limitations (15 pts.). Total Wu Fall Scale indicates High Risk Score (45 or more points). Fall prevention measures have been instituted. Side Rails Up X 2 Placed Close to Nursing Station Frequent Obs/Assessments Occuring As available patient and family educated on Fall Prevention Program and Strategies. Assessment: 11:30 Reassessment: No changes from previously documented assessment. Patient and/or family ll1 updated on plan of care and expected duration. Pain level reassessed. 12:30 Reassessment: No changes from previously documented assessment. Patient and/or family ll1 updated on plan of care and expected duration. Pain level reassessed. 12:53 Reassessment: Pt resting at this time. Eyes closed. Respirations even and unlabored. ss Lights dimmed for comfort. Blue top recollected and sent at this time. 13:15 Reassessment: No changes from previously documented assessment. Patient and/or family ll1 updated on plan of care and expected duration. Pain level reassessed. 14:00 Reassessment: No changes from previously documented assessment. Patient and/or family ll1 updated on plan of care and expected duration. Pain level reassessed. 15:00 Reassessment: No changes from previously documented assessment. Patient and/or family ll1 updated on plan of care and expected duration. Pain level reassessed. Patient is alert, oriented x 3, equal unlabored respirations, skin warm/dry/pink. 16:00 Reassessment: No changes from previously documented assessment. Patient and/or family ll1 updated on plan of care and expected duration. Pain level reassessed. 17:00 Reassessment: No changes from previously documented assessment. Patient and/or family ll1 updated on plan of care and expected duration. Pain level reassessed. Vital Signs: 10:31 BP 133 / 78; Pulse 100; Resp 18; Temp 98.5; Pulse Ox 100% ; Pain 0/10; ll1 11:15 Pulse 83; ll1 12:51 BP 122 / 54; Pulse 86; Resp 15; Pulse Ox 99% ; ll1 13:59 BP 126 / 56; Pulse 85; Resp 16; Pulse Ox 98% on R/A; ll1 17:13 BP 121 / 56; Pulse 85; Resp 17; Temp 98.4; Pulse Ox 98% on R/A; ll1 ED Course: 10:25 Patient arrived in ED. ss 10:26 Sebastian Rios NP is PHCP. pm1 10:26 He Simmons MD is Attending Physician. pm1 10:30 Jurgen Sarabia RN is Primary Nurse. ll1 10:30 Arm band placed on Patient placed in an exam room, on a stretcher. ll1 10:30 Missed attempt(s): 22 gauge in right forearm. Bleeding controlled, band aid applied, ll1 catheter tip intact. 10:31 Patient has correct armband on for positive identification. Bed in low position. Call ll1 light in reach. Side rails up X 1. Pulse ox on. NIBP on. 10:32 Triage completed. ll1 10:45 Inserted saline lock: 22 gauge in right antecubital area, using aseptic technique. ll1 Blood collected. 13:59 IV discontinued, intact, bleeding controlled, No redness/swelling at site. Pressure ll1 dressing applied. 17:13 No provider procedures requiring assistance completed. ll1 Administered Medications: 10:57 Drug: NS 0.9% 1000 ml Route: IV; Rate: 1000 ml; Site: right antecubital; ll1 14:09 Follow up: Response: No adverse reaction; IV Status: IV infiltrated; IV Intake: 800ml ll1 11:54 Drug: Geodon (ziprasidone) 10 mg Route: IM; Site: right deltoid; ss 12:42 Follow up: Response: No adverse reaction; RASS: Drowsy (-1) ll1 12:12 Drug: Potassium Chloride 20 mEq Route: IV; Rate: calculated rate; Site: right ll1 antecubital; 14:09 Follow up: Response: No adverse reaction; IV Status: IV infiltrated; IV Intake: 50ml ll1 12:12 Drug: Potassium Effervescent Tablet 50 mEq Route: PO; ll1 12:42 Follow up: Response: No adverse reaction ll1 12:16 Drug: Ativan (LORazepam) 1 mg Route: IVP; Site: right antecubital; ll1 12:42 Follow up: Response: No adverse reaction ll1 Intake: 14:09 IV: 50ml; Total: 50ml. ll1 14:09 IV: 800ml; Total: 850ml. ll1 Outcome: 16:43 Discharge ordered by . pm1 17:13 Discharged to home ambulatory. ll1 17:13 Condition: stable 17:13 Discharge instructions given to patient, Instructed on discharge instructions, follow up and referral plans. Demonstrated understanding of instructions, follow-up care. 17:14 Patient left the ED. ll1 Signatures: Gladis Devi RN RN ss Sebastian Rios, TONYA EMBROIDERY CUTTER pm1 Jurgen Sarabia RN RN ll1
--- NOTE | 2021-08-02 16:44 | EDPHYS ---
Physician Documentation [facility] Name: Santi Stinson Age: 40 yrs Sex: Female : 1980 Arrival Date: 08/02/2021 Time: 10:25 Bed 17 Private MD: ED Physician He Simmons HPI: 08/02 10:36 This 40 yrs old Female presents to ER via Ambulatory with complaints of Psych pm1 Problem. 10:36 The patient presents to the emergency department with psychosis, has experienced pm1 auditory hallucinations. Onset: The symptoms/episode began/occurred at an unknown time. Past psychiatric history: Prior diagnosis: bipolar disorder, Anxiety, ADD/ADHD, Psychiatric medications include: Unknown. Associated signs and symptoms: The patient has no apparent associated signs or symptoms. Severity of symptoms: At their worst the symptoms were moderate Pain is currently a 0 / 10. The patient has experienced similar episodes in the past, chronically, and the symptoms today are exactly the same, to previous ER visits with diagnosis of delusional disorder. It is unknown whether or not the patient has recently seen a physician, Last seen in the ER at the end of May for the same complaints. Patient was picked up by Tam ROBERTS because she was knocking on residential doors. Due to the second occurrence of knocking on residential doors today she was brought to the ER for evaluation. 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 She refuses to answer many questions. She she has been observed responding to internal stimuli and conversing with herself. 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 - Social history:: Smoking status: Patient denies any tobacco usage or history of. ROS: 10:36 Unable to obtain ROS due to Patient is refusing to answer questions. Unable to obtain pm1 review of systems due to patient being uncooperative. Exam: 10:36 Head/Face: Normocephalic, atraumatic. pm1 10:36 Skin: Warm, dry with normal turgor. Normal color with no rashes, no lesions, and no evidence of cellulitis. MS/ Extremity: Pulses equal, no cyanosis. Neurovascular intact. Full, normal range of motion. 10:36 Cardiovascular: Exam negative for acute changes, Rate: normal, Rhythm: regular, Pulses: no pulse deficits are appreciated. 10:36 Respiratory: Exam negative for acute changes, respiratory distress, shortness of breath, Breath sounds: are clear throughout. 10:36 Abdomen/GI: Inspection: abdomen appears normal, Palpation: abdomen is soft and non-tender, in all quadrants. 10:36 Neuro: Motor: is normal, moves all fours, strength is 5/5 in all extremities, Sensation: is normal, no obvious gross deficits, Gait: is steady, at a normal pace, without difficulty. 10:36 Psych: Behavior/mood is aggressive, Affect is animated, Delusions/hallucinations are present and described as Patient talking to herself from internal stimuli. Vital Signs: 10:31 BP 133 / 78; Pulse 100; Resp 18; Temp 98.5; Pulse Ox 100% ; Pain 0/10; ll1 11:15 Pulse 83; ll1 12:51 BP 122 / 54; Pulse 86; Resp 15; Pulse Ox 99% ; ll1 13:59 BP 126 / 56; Pulse 85; Resp 16; Pulse Ox 98% on R/A; ll1 17:13 BP 121 / 56; Pulse 85; Resp 17; Temp 98.4; Pulse Ox 98% on R/A; ll1 MDM: 10:26 Patient medically screened. pm1 15:42 Data reviewed: vital signs. Data interpreted: Pulse oximetry: on room air is 98 %. pm1 Interpretation: normal. 16:39 Counseling: I had a detailed discussion with the patient and/or guardian regarding: the pm1 historical points, exam findings, and any diagnostic results supporting the discharge/admit diagnosis, the need for outpatient follow up, for definitive care, a psychiatrist, to return to the emergency department if symptoms worsen or persist or if there are any questions or concerns that arise at home. 08/02 10:31 Order name: Acetaminophen; Complete Time: 11:51 pm1 08/02 10:31 Order name: Basic Metabolic Panel; Complete Time: 11:51 pm1 08/02 10:31 Order name: CBC with Diff; Complete Time: 11:05 pm1 08/02 10:31 Order name: ETOH Level; Complete Time: 11:51 pm1 08/02 10:31 Order name: Hepatic Function; Complete Time: 11:51 pm1 08/02 10:31 Order name: PT-INR; Complete Time: 13:23 pm1 08/02 10:31 Order name: Ptt, Activated; Complete Time: 13:23 pm1 08/02 10:31 Order name: Salicylate; Complete Time: 11:51 pm1 08/02 10:31 Order name: Urine Drug Screen; Complete Time: 15:19 pm1 08/02 14:07 Order name: Urine Dipstick-Ancillary; Complete Time: 14:20 EDMS 08/02 14:11 Order name: Urine --Ancillary (enter results); Complete Time: 15:41 eb 08/02 10:31 Order name: EKG; Complete Time: 10:31 pm1 08/02 10:31 Order name: EKG - Nurse/Tech; Complete Time: 10:57 pm1 08/02 10:31 Order name: IV Saline Lock; Complete Time: 10:44 pm1 08/02 10:31 Order name: Labs collected and sent; Complete Time: 10:44 pm08/02 10:31 Order name: Suicide Screening ([place]); Complete Time: 10:57 pm1 08/02 10:31 Order name: Urine Dipstick-Ancillary (obtain specimen); Complete Time: 14:10 pm1 08/02 10:31 Order name: Urine Test (obtain specimen); Complete Time: 14:10 pm1 08/02 11:27 Order name: Diet Regular; Complete Time: 11:27 ss Administered Medications: 10:57 Drug: NS 0.9% 1000 ml Route: IV; Rate: 1000 ml; Site: right antecubital; 1 14:09 Follow up: Response: No adverse reaction; IV Status: IV infiltrated; IV Intake: 800ml ll1 11:54 Drug: Geodon (ziprasidone) 10 mg Route: IM; Site: right deltoid; ss 12:42 Follow up: Response: No adverse reaction; RASS: Drowsy (-1) ll1 12:12 Drug: Potassium Chloride 20 mEq Route: IV; Rate: calculated rate; Site: right ll1 antecubital; 14:09 Follow up: Response: No adverse reaction; IV Status: IV infiltrated; IV Intake: 50ml ll1 12:12 Drug: Potassium Effervescent Tablet 50 mEq Route: PO; ll1 12:42 Follow up: Response: No adverse reaction ll1 12:16 Drug: Ativan (LORazepam) 1 mg Route: IVP; Site: right antecubital; ll1 12:42 Follow up: Response: No adverse reaction ll1 Disposition: 16:43 Chart complete. pm1 18:18 Co-signature as Attending Physician, He Simmons MD I agree with the assessment and rn plan of care. Attestation: The patient's history, exam findings, diagnostics, and a summary of any interventions or procedures was reviewed in detail with Sebastian Rios NP. Disposition Summary: 08/02/21 16:43 Discharge Ordered Location: Home pm1 Problem: new pm1 Symptoms: have improved pm1 Condition: Stable pm1 Diagnosis - Delusional disorders pm1 - Cannabis abuse pm1 Followup: pm1 - With: Emergency Department - When: As needed - Reason: Worsening of condition Followup: pm1 - With: Private Physician - When: 2 - 3 days - Reason: Recheck today's complaints, Continuance of care, Re-evaluation by your physician Discharge Instructions: - Discharge Summary Sheet pm1 - Psychosis pm1 Forms: - Medication Reconciliation Form pm1 - Thank You Letter pm1 - Antibiotic Education pm1 - Prescription Opioid Use pm1 Signatures: Dispatcher [employer] He Jacinto MD MD rn Smirch, Shelby, RN RN ss Marinas, Patrick, NP ROTOR CASTING MACHINE OPERATOR pm1 Jurgen Sarabia RN RN 1
[2021-08-02 17:41] VITALS: O2SAT 98
[2021-08-02 17:43] VITALS: BP 121/56; TEMP 98.4
== END 2021-08-02 17:14 | disposition home or self-care (01) ==
LOC: ER 10:23
DX: F12.10 Cannabis abuse, uncomplicated (principal); F31.9 Bipolar disorder, unspecified
CPT/HCPCS: 36415; 80048; 80076; 80307; 80320; 80329; 81003; 81025; 85025; 85610; 85730; 93005; 96361; 96365; 96366; 96372; 96375; 99284; J3480; J3486; J7030

== ENCOUNTER 2021-08-06 14:45 | Emergency (ER) | payer SELFPAY ==
--- OUTSIDE RECORDS SUMMARY | 2021-08-06 14:48 | XMS REPORT | Continuity of Care Document ---
:1980 Author Organization [facility] t Address [address] [place] [address] Care Team Providers Name Role Phone Daija [...] ID 2021-02-20 2021-02-20 Office SARAHI Ortiz [id number] 04 08:14:33 09:15:57 Visit Arsenio Choe CERTIFIED SURGICAL ASSISTANT [id number] [facility] [id number] MATERNAL [phone] & CHILD [address] [place] [address] Results Test Description Test Time Test Comments Results Result Comments Source ABO/RH 2018-02-15 08:21:00 Test Item Value Reference Range Interpretation Comme nts BLOOD TYPE (test code = TYPE) O Rh Positive Comment for Females Rhogam may be i ndicated for patient depending baby' s Rh status. BMP, BASIC METABOLIC [id number] 04:05:00 Test Item Value Reference Range Interpretation [...] glucose = GLUCOSE) normal <100 MG/ DL- [place] [employer] recommendation* * CALCIUM (test code 9.6 MG/DL 8.4-10.2 = CABLOOD) GFR (test code = 120 A GFR of >9 0 GFR) mL/min/1.73m2 mL/min/1.73m2 is considered norm al. B-HCG, [id number] 04:05:00 Test Item Value Reference Range Interpretation [...] is cons idered POSITIVE. Updat ed: 03/29/2010 [id number] 03:44:00 Test Item Value Reference Range Interpretation [...] 1.000-1.025 UAMICRO (test code = UAMICRO) NO [id number] 03:27:00 Test Item Value Reference Range Interpretation [...]
[2021-08-06] MEDS ORDERED: ZIPRASIDONE MESYLA 20 MG/VIAL IM ONE (15:15)
[2021-08-06] MEDS ORDERED: WATER FOR INJ,STERILE 10 ML ONE (15:16)
[2021-08-06 16:04] LABS: Urine Blood Trace-lysed (Negative); Urine Glucose Negative (Negative); Urine Protein Negative (Negative); Urine Specific Gravity 1.025 (1.005-1.030)
[2021-08-06 16:07] LABS: Absolute Lymphocytes (CBC) 1.3 K/uL (0.7-4.9); Basophils % 0.8 % (0-1.3); Hematocrit 34.5 % (36.0-45.0); Lymphocytes % 18.6 % (15.3-44.8); MPV 9.8 fL (7.6-11.3); RBC Red Blood Cell Count 3.73 M/uL (3.86-4.86)
[2021-08-06 16:12] LABS: Protime INR 1.03
[2021-08-06 16:26] LABS: Barbiturates NEGATIVE (NEGATIVE); Benzodiazepines NEGATIVE (NEGATIVE); Cocaine NEGATIVE (NEGATIVE); METHAMPHETAM NEGATIVE (NEGATIVE); Methadone NEGATIVE (NEGATIVE); Opiates NEGATIVE (NEGATIVE); Phencyclidine NEGATIVE (NEGATIVE); THC Cannibis POSITIVE (NEGATIVE)
[2021-08-06 16:31] LABS: ALT/SGPT 18 U/L (12-78); AST/SGOT 17 U/L (15-37); Albumin 3.3 g/dL (3.4-5.0); Alkaline Phosphatase 83 U/L (45-117); BUN Blood Urea Nitrogen 5 mg/dL (7-18); Bicarbonate 23 mmol/L (21-32); Bilirubin Direct 0.1 mg/dL (0-0.2); Bilirubin Total 0.3 mg/dL (0.2-1.0); Glucose Level 93 mg/dL (74-106); Protein, Total 6.7 g/dL (6.4-8.2); Sodium Level 140 mmol/L (136-145)
[2021-08-06 16:37] LABS: Potassium 2.8 mmol/L (3.5-5.1)
[2021-08-06] MEDS ORDERED: KCL 20 MEQ/100 mL IVPB 20 MEQ/100 ML BAG IV ONE (17:50)
[2021-08-06] MEDS ORDERED: POTASSIUM 25 MEQ EFFERV TAB ONE (17:50)
[2021-08-06] MEDS ORDERED: DIPHENHYDRAMINE 50 MG/ML VIAL ONE (17:59)
[2021-08-06] MEDS ORDERED: HALOPERIDOL LACT 5 MG/ML INJ ONE (18:00)
[2021-08-06] MEDS ORDERED: NA CHLORIDE 0.9% 1,000 ML ONE (18:10)
[2021-08-06 18:32] LABS: Urine Specific Gravity/Preg 1.025 (1.005-1.030)
[2021-08-07 02:26] LABS: BUN Blood Urea Nitrogen 4 mg/dL (7-18); Bicarbonate 25 mmol/L (21-32); Glucose Level 88 mg/dL (74-106); Potassium 3.3 mmol/L (3.5-5.1); Sodium Level 144 mmol/L (136-145)
[2021-08-07] MEDS ORDERED: POTASSIUM 25 MEQ EFFERV TAB ONE (03:15)
--- NOTE | 2021-08-07 03:25 | ER ---
Nurse's Notes [facility] Name: Santi Stinson Age: 40 yrs Sex: Female : 1980 Arrival Date: 08/06/2021 Time: 14:46 Bed 7 Private MD: Diagnosis: Hypokalemia;Other psychoactive substance abuse with intoxication delirium Presentation: 08/06 14:52 Chief complaint: patient brought in by mental [facility] due to patient threatening to ap3 shoot people with her cane. Coronavirus screen: Client denies travel out of the [place] in the last 14 days. Ebola Screen: No symptoms or risks identified at this time. Initial Sepsis Screen: Does the patient meet any 2 criteria? No. Patient's initial sepsis screen is negative. Does the patient have a suspected source of infection? No. Patient's initial sepsis screen is negative. Risk Assessment: Do you want to hurt yourself or someone else? Patient reports desire/thoughts of hurting themselves or someone else. Provider notified. Onset of symptoms was August 06, 2021. 14:52 Method Of Arrival: Law Enforcement: mental health ap3 14:52 Acuity: SAMANTHA 2 ap3 Triage Assessment: 15:01 General: Appears. 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 - Social history:: Smoking status: Patient reports the use of cigarette tobacco products, Patient uses alcohol, street drugs. Screenin:54 Abuse screen: Denies threats or abuse. Nutritional screening: No deficits noted. ap3 Tuberculosis screening: No symptoms or risk factors identified. Fall Risk No fall in past 12 months (0 pts). Secondary diagnosis (15 points) mental health. No IV (0 pts). Ambulatory Aid- Crutches/Cane/Walker (15 pts). Gait- Weak (10 pts.). Mental Status- Overestimates/Forgets Limitations (15 pts.). Total Wu Fall Scale indicates High Risk Score (45 or more points). Fall prevention measures have been instituted. Side Rails Up X 2 Placed Close to Nursing Station Frequent Obs/Assessments Occuring As available patient and family educated on Fall Prevention Program and Strategies. Assessment: 14:47 Reassessment: patient threatening to hit staff with her cane if we approach her. ap3 General: Behavior is agitated, combative, uncooperative. Pain: Denies pain. Neuro:. Neuro: Speech expressive vulgarity . Respiratory: Airway is patent Respiratory effort is even, unlabored, Respiratory pattern is regular, symmetrical. 14:59 Reassessment: PD at bedside. ap3 15:00 Reassessment: patient refuses vitals to be taken. ap3 17:57 Reassessment: patient getting verbally aggressive toward ER staff during ambulation to ap3 restroom. Patient states she was going to get her clothes and leave. Code Daniel called [id number]. 19:13 Reassessment: Patient and/or family updated on plan of care and expected duration. Pain ea level reassessed. Pt resting with eyes closed, respirations even and unlabored chest expansions even and symmetrical. No s/s of pain or discomfort noted at this time. 08/07 02:19 Reassessment: Patient and/or family updated on plan of care and expected duration. Pain ea level reassessed. Pt resting with eyes closed, respirations even and unlabored. Chest expansions even and symmetrical. 03:23 Reassessment: pt is awake and alert x 3, states she is hungry and wants to go home and bb does not want to hurt anyone at this time. Roosevelt CARDENAS notified. 03:33 Reassessment: Patient and/or family updated on plan of care and expected duration. Pain ea level reassessed. Patient is alert, oriented x 3, equal unlabored respirations, skin warm/dry/pink. Denies HI and SI Patient denies pain at this time. 03:39 Reassessment: Patient and/or family updated on plan of care and expected duration. Pain ea level reassessed. Patient is alert, oriented x 3, equal unlabored respirations, skin warm/dry/pink. Discharge instruction given to patient verbalized the understanding of instruction. Pt left ED ambulatory tolerating well. Psych: 08/06 16:06 Mobile Suicide Severity Screening: In the past month, have you wished you were mr2 or wished you could go to sleep and not wake up? Patient responds "No." "In the past month, have you actually had any thoughts of killing yourself?" Patient responds "no." "In your lifetime, have you ever done anything, started to do anything, or prepared to do anything to end your life?" Patient responds "no.". Subjective: Having thoughts of homicide. Objective: Patient is uncooperative, belligerent, Speech is loud, Affect is. Interventions: Urine collected and sent for urine drug test. Safety Checks: Personal items have been removed. Patient uses PCP. 18:05 Commitment: Commitment papers completed. ap3 Vital Signs: 17:32 Temp 97.6(A); ap3 19:57 BP 100 / 64; Pulse 80; Resp 18; Pulse Ox 98% ; ea 08/07 03:33 BP 120 / 78; Pulse 88; Resp 20; Temp 98; Pulse Ox 98% ; ea ED Course: 08/06 14:46 Patient arrived in ED. ss 14:49 Maco Fountain PA is PHCP. jr8 14:50 He Simmons MD is Attending Physician. jr8 14:54 Triage completed. ap3 15:50 Straight cath inserted, using sterile technique, Returned malena urine. Patient mr2 tolerated. Inserted saline lock: 20 gauge in left hand, using aseptic technique. Blood collected. 16:05 Acetaminophen Sent. mt 16:05 Basic Metabolic Panel Sent. mt 16:05 CBC with Diff Sent. mt 16:05 ETOH Level Sent. mt 16:05 Hepatic Function Sent. mt 16:05 PT-INR Sent. mt 16:05 Ptt, Activated Sent. mt 16:05 Salicylate Sent. mt 16:05 Urine Drug Screen Sent. mt 16:05 Bed in low position. Side rails up X2. mr2 16:05 Patient has correct armband on for positive identification. Bed in low position. Call nd light in reach. Side rails up X2. Warm blanket given. Pulse ox on. NIBP on. 16:06 Initial lab(s) drawn, by ED staff, sent to lab. Urine collected: straight cath nd specimen, clear, EKG done, by ED staff, reviewed by Maco CARDENAS. 16:25 Placed in gown. mh5 18:05 Arm band placed on right ankle. ap3 18:23 PHCP role handed off by Maco Fountain PA cp 18:23 Roosevelt Landrum PA is PHCP. cp 20:07 Sarita Pruett, RN is Primary Nurse. ea 08/07 03:22 called [facility] Crisis Line spoke to Sabrina to have a screener evaluate the patient. mw2 03:32 IV discontinued, intact, bleeding controlled, No redness/swelling at site. Pressure ea dressing applied. 03:32 No provider procedures requiring assistance completed. ea Restraints: 08/06 19:00 Violent/Self Destructive Restraint: Monitoring: Mental status: patient asleep, ea Cognition: follow commands, Circulation: Within defined parameters (based on Cardiovascular assessment). Skin integrity: Within defined parameters (based on Integumentary assessment) Restraint status: Soft wrist restraint (Right) Soft wrist restraint (Left) Soft ankle restraint (Right) Soft ankle restraint (Left). 19:15 Violent/Self Destructive Restraint: Monitoring: Mental status: patient asleep, ea Cognition: follow commands, Circulation: Within defined parameters (based on Cardiovascular assessment). Skin integrity: Within defined parameters (based on Integumentary assessment) Restraint status: Soft wrist restraint (Right) Soft wrist restraint (Left) Soft ankle restraint (Right) Soft ankle restraint (Left). 19:30 Violent/Self Destructive Restraint: Monitoring: Mental status: patient asleep, ea Cognition: follow commands, Circulation: Within defined parameters (based on Cardiovascular assessment). Skin integrity: Within defined parameters (based on Integumentary assessment) Restraint status: Soft wrist restraint (Right) Soft wrist restraint (Left) Soft ankle restraint (Right) Soft ankle restraint (Left). 19:45 Violent/Self Destructive Restraint: Monitoring: Mental status: patient asleep, ea Cognition: follow commands, Circulation: Within defined parameters (based on Cardiovascular assessment). Skin integrity: Within defined parameters (based on Integumentary assessment) Restraint status: Soft wrist restraint (Right) Soft wrist restraint (Left) Soft ankle restraint (Right) Soft ankle restraint (Left). 20:00 Violent/Self Destructive Restraint: Monitoring: Mental status: patient asleep, ea Cognition: follow commands, Circulation: Within defined parameters (based on Cardiovascular assessment). Skin integrity: Within defined parameters (based on Integumentary assessment) Restraint status: Soft wrist restraint (Right) Discontinued. Soft wrist restraint (Left) Discontinued. Soft ankle restraint (Right) Discontinued. Soft ankle restraint (Left) Discontinued. 20:03 Violent/Self Destructive Restraint: Readiness for Discontinue: Release criteria met. No ea longer exhibiting violent or self destructive behavior. Alt interventions effective. Restraint discontinuation: Discontinued at August 06, 2021 at 20:03. Administered Medications: 15:00 Drug: Geodon (ziprasidone) 20 mg Route: IM; Site: left deltoid; ap3 16:00 Follow up: Response: No adverse reaction hb 17:52 Drug: Potassium Chloride 20 mEq Route: IV; Rate: calculated rate; Infused Over: 2 hrs; hb Site: left hand; 08/07 03:40 Follow up: IV Status: Completed infusion ea 08/06 17:52 Drug: Potassium Effervescent Tablet 50 mEq Route: PO; hb 08/07 02:52 Follow up: Response: No adverse reaction ea 08/06 17:55 Drug: Benadryl (diphenhydrAMINE) 25 mg Route: IVP; Site: left hand; 08/07 02:53 Follow up: Response: No adverse reaction 08/06 17:55 Drug: HALdol (haloperidol) 5 mg Route: IVP; Site: left hand; hb 08/07 02:53 Follow up: Response: No adverse reaction ea 02:40 CANCELLED (Physician Discretion): Potassium Chloride 20 mEq IV at calculated rate once; cp administer over 1-2 hours 02:52 Drug: Potassium Effervescent Tablet 50 mEq Route: PO; ea 03:40 Follow up: Response: No adverse reaction ea Outcome: 03:25 Discharge ordered by MD. cp 03:39 Discharged to home ambulatory, with friend. ea 03:39 Condition: stable 03:39 Discharge instructions given to patient, Instructed on discharge instructions, follow up and referral plans. Demonstrated understanding of instructions, follow-up care. 03:40 Patient left the ED. ea Signatures: Cherie Pimentel RN Gladis Barlow RN RN ss Roszak, Josh, PA PA jr8 Page, Corey, PA PA cp Baxter, Heather, RN RN Patria Tobias [facility] Tariq, Mai mt Sarita Pruett RN RN ea Prokisch, Amanda, RN RN 3 Keiry Miller 2 Bradley Tamayo 2
--- NOTE | 2021-08-07 03:25 | EDPHYS ---
Physician Documentation [facility] Name: Santi Stinson Age: 40 yrs Sex: Female : 1980 Arrival Date: 08/06/2021 Time: 14:46 Bed 7 Private MD: ED Physician He Simmons HPI: 08/06 15:46 This 40 yrs old Female presents to ER via Law Enforcement with complaints of jr8 Psych Problem. 15:46 This is a 40-year-old female patient that was brought in by mental health for jr8 psychiatric evaluation. Mental health stated that they were called out because the individual was yelling and being offensive at a liquor store. Patient upon arrival is alert to person and place but is having random thoughts and delusions. Patient appears very agitated. Is very animated with her expressions. 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 - Social history:: Smoking status: Patient reports the use of cigarette tobacco products, Patient uses alcohol, street drugs. ROS: 15:46 Eyes: Negative for injury, pain, redness, and discharge, ENT: Negative for injury, jr8 pain, and discharge, Neck: Negative for injury, pain, and swelling, Cardiovascular: Negative for chest pain, palpitations, and edema, Respiratory: Negative for shortness of breath, cough, wheezing, and pleuritic chest pain, Abdomen/GI: Negative for abdominal pain, nausea, vomiting, diarrhea, and constipation, Back: Negative for injury and pain, MS/Extremity: Negative for injury and deformity, Skin: Negative for injury, rash, and discoloration, Neuro: Negative for headache, weakness, numbness, tingling, and seizure. 15:46 Psych: Positive for auditory hallucinations, visual hallucinations. Exam: 15:46 Eyes: Pupils equal round and reactive to light, extra-ocular motions intact. Lids and jr8 lashes normal. Conjunctiva and sclera are non-icteric and not injected. Cornea within normal limits. Periorbital areas with no swelling, redness, or edema. ENT: Nares patent. No nasal discharge, no septal abnormalities noted. Tympanic membranes are normal and external auditory canals are clear. Oropharynx with no redness, swelling, or masses, exudates, or evidence of obstruction, uvula midline. Mucous membranes moist. Cardiovascular: Regular rate and rhythm with a normal S1 and S2. No gallops, murmurs, or rubs. Normal PMI, no JVD. No pulse deficits. Respiratory: Lungs have equal breath sounds bilaterally, clear to auscultation and percussion. No rales, rhonchi or wheezes noted. No increased work of breathing, no retractions or nasal flaring. Abdomen/GI: Soft, non-tender, with normal bowel sounds. No distension or tympany. No guarding or rebound. No evidence of tenderness throughout. Skin: Warm, dry with normal turgor. Normal color with no rashes, no lesions, and no evidence of cellulitis. MS/ Extremity: Pulses equal, no cyanosis. Neurovascular intact. Full, normal range of motion. Neuro: Awake and alert, GCS 15, oriented to person, place. Cranial nerves II-XII grossly intact. Motor strength 5/5 in all extremities. Sensory grossly intact. Cerebellar exam normal. Normal gait. 15:46 Psych: Behavior/mood is aggressive, uncooperative, Affect is animated, Oriented to person, place, only. Patient has no thoughts/intents to harm self or others. Judgement / Insight is impaired. Delusions/hallucinations are present and described as Patient is talking about random people being in the room. Stating that we are in different individuals in which we are not. Patient continues to have random flight of ideas. Much of what she is saying is confused and not logical. Vital Signs: 17:32 Temp 97.6(A); ap3 19:57 BP 100 / 64; Pulse 80; Resp 18; Pulse Ox 98% ; ea 08/07 03:33 BP 120 / 78; Pulse 88; Resp 20; Temp 98; Pulse Ox 98% ; ea MDM: 08/06 14:50 Patient medically screened. jr8 16:00 Differential diagnosis: drug withdrawal. acute psychotic break, psychosis secondary to cp non-compliance, illegal drug use. 08/07 03:25 Data reviewed: vital signs, nurses notes, lab test result(s), EKG. 03:25 Test interpretation: by ED physician or midlevel provider: ECG. ED course: cp Reevaluation: Patient calm and cooperative. Patient denies any current thoughts of suicide and/or homicide. Potassium replaced orally and through IV administration. Will discharge to home for continued monitoring. 08/06 14:50 Order name: Acetaminophen; Complete Time: 16:40 [facility] 08/06 14:50 Order name: Basic Metabolic Panel; Complete Time: 16:40 [facility] 08/06 14:50 Order name: CBC with Diff; Complete Time: 16:16 [facility] 08/06 18:37 Interpretation: Normal except: RBC 3.73; HGB 11.8; HCT 34.5; YUDY% 74.5. 08/06 14:50 Order name: ETOH Level; Complete Time: 16:40 [facility] 08/06 14:50 Order name: Hepatic Function; Complete Time: 16:40 [facility] 08/06 14:50 Order name: PT-INR; Complete Time: 16:16 [facility] 08/06 14:50 Order name: Ptt, Activated; Complete Time: 16:16 [facility] 08/06 14:50 Order name: Salicylate; Complete Time: 16:57 [facility] 08/06 14:50 Order name: Urine Drug Screen; Complete Time: 16:40 [facility] 08/06 16:04 Order name: Urine Dipstick-Ancillary; Complete Time: 16:11 [facility] 08/06 16:04 Order name: Urine --Ancillary (enter results); Complete Time: 18:37 08/06 21:10 Order name: SARS-COV-2 RT PCR; Complete Time: 21:35 [facility] 08/06 21:36 Order name: BMP: repeat after administration of potassium; Complete Time: 02:38 08/07 02:38 Interpretation: Normal except: K 3.3; CL 115; BUN 4; CRE 0.52. 08/06 14:50 Order name: EKG; Complete Time: 14:51 [facility] 08/06 14:50 Order name: EKG - Nurse/Tech; Complete Time: 16:06 [facility] 08/06 14:50 Order name: IV Saline Lock; Complete Time: 15:59 [facility] 08/06 14:50 Order name: Labs collected and sent; Complete Time: 15:59 08/06 14:50 Order name: Suicide Screening ([place]); Complete Time: 15:10 08/06 14:50 Order name: Urine Dipstick-Ancillary (obtain specimen); Complete Time: 15:59 08/06 14:50 Order name: Restraint:Violent/Self Destructive (Adult:18yo or >); Complete Time: 16:05 8 08/06 14:50 Order name: Straight Cath - Urine; Complete Time: 15:59 Administered Medications: 08/06 15:00 Drug: Geodon (ziprasidone) 20 mg Route: IM; Site: left deltoid; ap3 16:00 Follow up: Response: No adverse reaction hb 17:52 Drug: Potassium Chloride 20 mEq Route: IV; Rate: calculated rate; Infused Over: 2 hrs; hb Site: left hand; 08/07 03:40 Follow up: IV Status: Completed infusion ea 08/06 17:52 Drug: Potassium Effervescent Tablet 50 mEq Route: PO; 08/07 02:52 Follow up: Response: No adverse reaction 08/06 17:55 Drug: Benadryl (diphenhydrAMINE) 25 mg Route: IVP; Site: left hand; 08/07 02:53 Follow up: Response: No adverse reaction 08/06 17:55 Drug: HALdol (haloperidol) 5 mg Route: IVP; Site: left hand; 08/07 02:53 Follow up: Response: No adverse reaction ea 02:40 CANCELLED (Physician Discretion): Potassium Chloride 20 mEq IV at calculated rate once; cp administer over 1-2 hours 02:52 Drug: Potassium Effervescent Tablet 50 mEq Route: PO; ea 03:40 Follow up: Response: No adverse reaction ea Disposition Summary: 08/07/21 03:25 Discharge Ordered Location: Home cp Problem: new cp Symptoms: have improved cp Condition: Stable cp Diagnosis - Hypokalemia cp - Other psychoactive substance abuse with intoxication delirium cp Followup: cp - With: Private Physician - When: 2 - 3 days - Reason: hypokalemia Discharge Instructions: - Discharge Summary Sheet cp - Potassium Content of Foods cp - Substance Use Disorder cp - Hypokalemia cp - Substance Use Disorder and Mental Illness cp Forms: - Medication Reconciliation Form cp - Thank You Letter cp - Antibiotic Education cp - Prescription Opioid Use cp Addendum: 08/11/2021 08:27 Co-signature as Attending Physician, He Simmons MD. r n Signatures: Dispatcher [employer] He Simmons MD MD rn Roszak, Josh, PA PA jr8 Roosevelt Landrum PA PA cp Mari Sawyer RN RN hb Antunez, Elena, RN RN ea Prokisch, Amanda, RN RN ap3 Corrections: (The following items were deleted from the chart) 08/06 20:12 19:57 CORONAVIRUS+MR.LAB.BRZ ordered. [facility] 08/07 02:40 02:39 Potassium Chloride 20 mEq IV at calculated rate once; administer over 1-2 hours cp ordered. cp
[2021-08-07 04:09] VITALS: O2SAT 98
[2021-08-07 04:11] VITALS: BP 120/78; TEMP 98
== END 2021-08-07 03:40 | disposition home or self-care (01) ==
LOC: ER 14:45
DX: F19.121 Other psychoactive substance abuse with intoxication delirium (principal); E87.6 Hypokalemia; F31.9 Bipolar disorder, unspecified; Z20.822 Contact with and (suspected) exposure to COVID-19; Z72.0 Tobacco use
CPT/HCPCS: 36415; 51702; 80048; 80076; 80307; 80320; 80329; 81003; 81025; 85025; 85610; 85730; 93005; 96365; 96366; 96372; 96375; 99285; J1200; J1630; J3480; J3486; J7030; U0003